=== PATIENT | female | born 1945 | race Caucasian/White ===

== ENCOUNTER → 2019-12-07 09:11 | Outpatient (CLI) | payer OTHER, SELFPAY ==
--- NOTE | 2019-12-07 09:31 | DEXA_ITS ---
Bone Density Report Name: Ashley Stokes Age: 74 Sex: Female Ethnicity: White Date of : 1945 Indication: osteopenia; height loss; hysterectomy; Referring Provider: Jeannie, Mercedes Study: Bone densitometry was performed. Exam Date: December 07, 2019 Accession number: [id number] Bone Density: Region BMD T-score Z-score Classification AP Spine (L1-L4) 0.924 -1.1 1.2 Osteopenia Femoral Neck (Left) 0.591 -2.3 -0.3 Osteopenia Total Hip (Left) 0.734 -1.7 0.0 Osteopenia Femoral Neck (Right) 0.552 -2.7 -0.7 Osteoporosis Total Hip (Right) 0.690 -2.1 -0.4 Osteopenia Total Hip Mean 0.712 -1.9 -0.2 Osteopenia World Health Organization criteria for BMD impression classify patients as: Normal (T-score at or above -1.0), Osteopenia (T-score between -1.0 and -2.5), or Osteoporosis (T-score at or below -2.5). 10-year Fracture Risk: FRAX not reported because: Some T-score for Spine Total or Hip Total or Femoral Neck at or below -2.5 Previous Exams: Region Exam Age BMD T-score BMD Change BMD Change Date g/cm2 vs Baseline vs Previous AP Spine(L1-L4) 12/07/2019 74 0.924 -1.1 0.061* 0.138* 08/15/2017 72 0.786 -2.4 -0.077* -0.077* 03/28/2015 69 0.862 -1.7 0.000 0.029* 09/16/2012 67 0.833 -1.9 -0.030* -0.030* 04/06/2008 62 0.863 -1.7 Total Hip(Left) 12/07/2019 74 0.734 -1.7 0.017 -0.004 08/15/2017 72 0.738 -1.7 0.021 -0.009 03/28/2015 69 0.747 -1.6 0.030* 0.012 09/16/2012 67 0.734 -1.7 0.018 0.018 04/06/2008 62 0.717 -1.8 Total Hip(Right) 12/07/2019 74 0.690 -2.1 0.003 -0.012 08/15/2017 72 0.702 -2.0 0.014 0.009 03/28/2015 69 0.693 -2.0 0.006 -0.041* 09/16/2012 67 0.734 -1.7 0.047* 0.047* 04/06/2008 62 0.688 -2.1 *Denotes significance at 95% confidence level, LSC for AP Spine = 0.022 g/cm2, LSC for Total Hip = 0.027 g/cm2 Clinical Information Provided by Patient: Has used the following medications: Evista (i.e. raloxifene), Vitamin D, Calcium Has the following medical conditions: Hysterectomy Patient maximum height was 62 Menopause Age: 43 Drinks caffeinated beverages Onset of menses at age 14 Number of children 3 Impression: The patient has osteoporosis, based on t
--- NOTE | 2019-12-07 10:30 | DEXA_ITS ---
See other dexa report on this same visit. Bone Density Report Name: Ashley Stokes Age: 74 Sex: Female Ethnicity: White Date of : 1945 Indication: osteopenia; height loss; hysterectomy; Referring Provider: Jeannie, Mercedes Study: Bone densitometry was performed. Exam Date: December 07, 2019 Accession number: [id number] Bone Density: Region BMD T-score Z-score Classification AP Spine (L1-L4) 0.924 -1.1 1.2 Osteopenia Femoral Neck (Left) 0.591 -2.3 -0.3 Osteopenia Total Hip (Left) 0.734 -1.7 0.0 Osteopenia Femoral Neck (Right) 0.552 -2.7 -0.7 Osteoporosis Total Hip (Right) 0.690 -2.1 -0.4 Osteopenia Total Hip Mean 0.712 -1.9 -0.2 Osteopenia World Health Organization criteria for BMD impression classify patients as: Normal (T-score at or above -1.0), Osteopenia (T-score between -1.0 and -2.5), or Osteoporosis (T-score at or below -2.5). 10-year Fracture Risk: FRAX not reported because: Some T-score for Spine Total or Hip Total or Femoral Neck at or below -2.5 Previous Exams: Region Exam Age BMD T-score BMD Change BMD Change Date g/cm2 vs Baseline vs Previous AP Spine(L1-L4) 12/07/2019 74 0.924 -1.1 0.061* 0.138* 08/15/2017 72 0.786 -2.4 -0.077* -0.077* 03/28/2015 69 0.862 -1.7 0.000 0.029* 09/16/2012 67 0.833 -1.9 -0.030* -0.030* 04/06/2008 62 0.863 -1.7 Total Hip(Left) 12/07/2019 74 0.734 -1.7 0.017 -0.004 08/15/2017 72 0.738 -1.7 0.021 -0.009 03/28/2015 69 0.747 -1.6 0.030* 0.012 09/16/2012 67 0.734 -1.7 0.018 0.018 04/06/2008 62 0.717 -1.8 Total Hip(Right) 12/07/2019 74 0.690 -2.1 0.003 -0.012 08/15/2017 72 0.702 -2.0 0.014 0.009 03/28/2015 69 0.693 -2.0 0.006 -0.041* 09/16/2012 67 0.734 -1.7 0.047* 0.047* 04/06/2008 62 0.688 -2.1 *Denotes significance at 95% confidence level, LSC for AP Spine = 0.022 g/cm2, LSC for Total Hip = 0.027 g/cm2 Clinical Information Provided by Patient: Has used the following medications: Evista (i.e. raloxifene), Vitamin D, Calcium Has the following medical conditions: Hysterectomy Patient maximum height was 62 Menopause Age: 43 Drinks caffeinated beverages Onset of menses at age 14 Number of children 3 Imp
== END ==
PROVIDERS: Visit Provider Family Medicine
DX: Z78.0 Asymptomatic menopausal state (principal); M85.88 Other specified disorders of bone density and structure, other site; M85.852 Other specified disorders of bone density and structure, left thigh; M85.851 Other specified disorders of bone density and structure, right thigh; M81.0 Age-related osteoporosis without current pathological fracture
CPT/HCPCS: 77080

== ENCOUNTER → 2020-01-15 13:30 | Outpatient (CLI) | payer OTHER, SELFPAY ==
--- NOTE | ~2020-01-15 | MM_ITS ---
EXAMINATION: MM screening mervat BI w robyn HISTORY: Screening mammogram TECHNIQUE: Craniocaudal and mediolateral oblique 3-D tomosynthesis images were obtained and synthetic 2-D images were generated. CAD analysis was submitted and interpreted. COMPARISON: 05/06/2014, 04/20/2013 bilateral digital screening mammogram examinations BREAST PARENCHYMAL COMPOSITION: The breasts are heterogeneously dense, which may obscure small masses . FINDINGS: There left breast is considerably smaller than the right consistent with partial mastectomy in the 1990s reportedly. There is no evidence of suspicious mass, calcification, or architectural di stortion to suggest malignancy in either breast. There has been no suspicious interval change. IMPRESSION: 1. No mammographic evidence of malignancy. 2. Recommend routine screening mammography in one year. BI-RADS Category 2: Benign finding(s). Reviewed, dictated and finalized at location A.
== END ==
PROVIDERS: Visit Provider Family Medicine
DX: Z12.31 Encounter for screening mammogram for malignant neoplasm of breast (principal)
CPT/HCPCS: 77063; 77067

== ENCOUNTER 2021-03-19 00:09 | Emergency (ER) | payer OTHER, SELFPAY ==
--- NOTE | ~2021-03-19 | CT_ITS ---
EXAMINATION: CT abdomen pelvis w con INDICATION: Abdominal pain TECHNIQUE: Computed tomographic images of the abdomen and pelvis were obtained after the administrati on of 100 cc of Omnipaque 350 intravenous contrast. The dose-length product (DLP) was 250.44 mGy-cm. Automated exposure control and iterative reconstruction technique were employed. COMPARISON: None available FINDINGS: Minimal dependent atelectasis is present in the lung bases. The heart size is normal. The l iver, spleen, pancreas, and gallbladder are normal. There is mild thickening of the adrenal glands wh ich maintain their adreniform shape. Cysts of the kidneys measure up to 9 mm on the right. There is c alcified atherosclerosis of the aorta and many of the other arteries. No pathologically enlarged abdo jaclyn or pelvic lymph nodes are identified. There is no free intraperitoneal gas or evidence of bowel obstruction. There is a ventral hernia containing fat and a short segment of nonobstructed transvers e colon. There is severe lumbar spondylosis at L5-S1. There is a 4.4 x 3.0 cm cystic lesion of the le ft adnexa. An endoluminal stent is noted in the left common and external iliac arteries. There are matta rgical clips in the left groin. IMPRESSION: 1. Large lower abdominal ventral hernia containing fat and a short segment of nonobstructed transvers e colon. 2. Cystic lesion of the left adnexa. Follow-up pelvic ultrasound is recommended. Reviewed, dictated and finalized at location A. IMPRESSION: 1. Large lower abdominal ventral hernia containing fat and a short segment of n onobstructed transverse colon. 2. Cystic lesion of the left adnexa. Follow-up pelvic ultrasound is recommended .
--- NOTE | 2021-03-19 00:10 | PC.NURSE ---
zofran given per EMS
[2021-03-19 00:13] VITALS: BP 144/55; PULSE 57; RESP 20; TEMP 36.5; O2SAT 98
--- NOTE | 2021-03-19 00:22 | ECG_ITS ---
Measurements Intervals [place] Rate: 59 P: 74 CT: 166 QRS: 42 QRSD: 105 T: 57 QT: 461 QTc: 457 Interpretive Statements SINUS BRADYCARDIA VENTRICULAR PREMATURE COMPLEX CANNOT RULE OUT SEPTAL INFARCT, AGE INDETERMINATE ABNORMAL ECG Electronically Signed On 03-19-2021 9:31:14 CDT by Gregg Natarajan D.O.
[2021-03-19] MEDS: PROCHLORPERAZINE EDISYLATE 10 MG/2 ML VIAL IV PUSH (00:39)
[2021-03-19] MEDS: HYDROmorphone HCL INJ (*CRX) 1 MG/ML SYR 0.5 MG IV PUSH (00:40)
[2021-03-19] MEDS: SODIUM CHLORIDE 0.9% IV 1,000 ML 999 ML IV CONT (00:40)
[2021-03-19 00:46] LABS: Basophils Percent Auto 0.2 % (0.2-1.2); Eosinophils Percent Auto 0.2 % (0-4.4); Hematocrit 26.6 % (37.0-47.0); Hemoglobin 7.6 g/dL (12.0-15.0); Immature Granulocyte Absolute 0.05 K/mm3 (0.00-0.031); Immature Granulocyte Percent A 0.5 % (0-0.5); Lymphocytes Absolute Auto 1.91 K/mm3 (0.9-3.2); Lymphocytes Percent Auto 18.9 % (18.3-44.2); Mean Corpuscular HGB Conc 28.6 g/dl (32-36); Mean Corpuscular Hemoglobin 22.2 pg (26-34); Mean Corpuscular Volume 77.6 fl (80-100); Monocytes Absolute Auto 1.1 K/mm3 (0.1-0.6); Monocytes Percent Auto 10.5 % (2.6-8.5); Neutrophils Absolute Auto 7.1 K/mm3 (1.3-6.7); Neutrophils Percent Auto 69.7 % (45.5-73.1); Platelet Count Result 255 k/mm3 (150-375); Red Blood Count 3.43 M/mm3 (4.2-5.4); White Blood Count 10.1 K/mm3 (4.5-10.0)
[2021-03-19 00:57] VITALS: BP 120/49; PULSE 80; RESP 17; O2SAT 95
[2021-03-19 00:57] LABS: Alanine Aminotransferase 15 U/L (4-35); Albumin Level 4.2 g/dL (3.5-5.1); Alkaline Phosphatase 58 U/L (38-126); Anion Gap 8 mmol/L (8-16); Aspartate Amino Transferase 20 U/L (14-36); Bilirubin,Total 0.1 mg/dL (0.2-1.3); Blood Urea Nitrogen 22 mg/dL (7-17); Calcium 9.2 mg/dL (8.4-10.2); Carbon Dioxide 26 mmol/L (22-30); Chloride 107 mmol/L (98-107); Estimated CRCL calculation 68 ml/min; Estimated Glomerular Filt Rate > 60; Glucose 123 mg/dL (65-110); Lactic Acid Reflex 1.5 mmol/L (0.7-2.1); Lipase 67 U/L (23-300); Magnesium 1.8 mg/dL (1.6-2.3); Potassium 3.7 mmol/L (3.4-5.0); Sodium 141 mmol/L (137-145)
[2021-03-19 00:59] LABS: Hypochromasia 1+ (NORMAL); Platelet Estimate Adequate (Adequate)
[2021-03-19 01:05] LABS: INR 0.9; Prothrombin Time 12.1 Seconds (11.1-14.7)
[2021-03-19 01:10] LABS: Partial Thromboplastin Time < 20.0 SECONDS (22.3-36.8)
[2021-03-19 01:13] LABS: Add Urine Microscopic? YES; Appearance Urine Clear (Clear); Bilirubin Urine Negative (Negative); Blood Urine Negative (Negative); Color Urine Yellow (Yellow); Glucose Urine UA Negative (Negative); Ketones Urine Negative (Negative); Leukocyte Esterase Ur Negative LEU/UL (Negative); Mucus Urine Rare /lpf; Nitrate Urine Negative (Negative); Protein Urine 1+ mg/dL (Negative); Specific Grav Ur 1.017 (1.001-1.035); Urobilinogen Urine Negative mg/dL (<2.0); WBC Urine 0-3 /hpf
--- NOTE | 2021-03-19 01:25 | ED.GENADULT ---
HPI - General Adult General Chief complaint: Nausea/Vomiting/Diarrhea Stated complaint: NVD Time Seen by Provider: 03/19/21 00:17 History of Present Illness HPI narrative: Patient is a 75-year-old female presents the emergency department with chief complaint of nausea and vomiting and diarrhea. Patient states that this evening she started not feeling well and had sudden onset of vomiting and diarrhea. The patient states she has had several episodes of diarrhea and 3 episodes of vomiting the patient states that she has discomfort in the epigastric region reports that she has had no fevers and reported that she vomited up the soup that she ate earlier this evening. Related Data Allergies Allergy/AdvReac Type Severity Reaction Status Date / Time alendronate sodium [Fosamax] Allergy Unknown bone pain Verified 05/31/17 21:20 codeine Allergy Unknown Verified 05/31/17 21:20 morphine AdvReac Unknown VOMITING Verified 05/18/16 11:58 Review of Systems Review of Systems: A 10 system review of systems was completed on the patient and is negative except for what is stated in the HPI. Nursing and ancillary documentation was reviewed. Exam Narrative: GENERAL: Well-appearing, well-nourished, and in no acute distress. HEAD: Normocephalic, atraumatic. EYES: PERRLA and EOMI. ENT: Nares clear, no rhinorrhea or epistaxis. Mucous membranes moist. NECK: Supple. CHEST: Clear to auscultation. No respiratory distress. HEART: Regular rate and rhythm. No murmur heard. Normal peripheral pulses. ABDOMEN: Soft, mild tenderness to palpation in the epigastric region, nondistended, normal active bowel sounds. EXTREMITIES: Normal range of motion. No edema. SKIN: Warm, dry, no rash. NEURO: No focal deficits. Alert and oriented x3. PSYCH: Normal mood and affect. Course Course Emergency Course: Per the radiologist report there is no acute abnormality on the CT scan. Patient was found to be anemic today with a hemoglobin of 7.6. Patient has no history of anemia had a negative stool guaiac. It was discussed with the patient admission for observation and serial H&H's and further work-up of the anemia versus outpatient follow-up. The patient initially requested for outpatient follow-up and even after explaining the risk and benefits of staying in the hospital the patient opted for outpatient follow-up with her primary care physician. Patient was instructed if she begins to get lightheaded has chest pain or shortness of breath she should return to the emergency department immediately Vital Signs Vital signs: Vital Signs Temperature 36.5 C 03/19/21 00:13 Pulse Rate 57 L 03/19/21 00:13 Respiratory Rate 20 03/19/21 00:13 Blood Pressure 144/55 H 03/19/21 00:13 Pulse Oximetry 98 03/19/21 00:13 Temperature 36.5 C 03/19/21 00:13 Pulse Rate 91 03/19/21 01:48 Respiratory Rate 22 H 03/19/21 01:48 Blood Pressure 134/58 L 03/19/21 01:48 Pulse Oximetry 96 03/19/21 01:48 Medical Decision Making Vital Signs Vital Signs: Vital Signs Temperature 36.5 C 03/19/21 00:13 Pulse Rate 57 L 03/19/21 00:13 Respiratory Rate 20 03/19/21 00:13 Blood Pressure 144/55 H 03/19/21 00:13 Pulse Oximetry 98 03/19/21 00:13 Temperature 36.5 C 03/19/21 00:13 Pulse Rate 91 03/19/21 01:48 Respiratory Rate 22 H 03/19/21 01:48 Blood Pressure 134/58 L 03/19/21 01:48 Pulse Oximetry 96 03/19/21 01:48 Lab Data Result diagrams: 03/19/21 00:38 03/19/21 00:38 Labs: Lab Results 03/19/21 03/19/21 03/19/21 Range/Units 00:38 00:38 00:38 WBC 10.1 H (4.5-10.0) K/mm3 RBC 3.43 L (4.2-5.4) M/mm3 Hgb 7.6 L (12.0-15.0) g/dL Hct 26.6 L (37.0-47.0) % MCV 77.6 L (80-100) fl MCH 22.2 L (26-34) pg MCHC 28.6 L (32-36) g/dl RDW 18.0 H (11.5-14.5) % Plt Count 255 (150-375) k/mm3 MPV 11.0 H (7.4-10.4) fl Immature Gran % (Auto) 0.5 (0-0.5) % Neut % (Aut
[2021-03-19 01:48] VITALS: BP 134/58; PULSE 91; RESP 22; O2SAT 96
[2021-03-19 03:31] VITALS: BP 149/55; PULSE 72; RESP 14; O2SAT 95
== END 2021-03-19 03:32 | disposition home or self-care (01) ==
PROVIDERS: Emergency Provider Emergency Medicine
DX: K52.9 Noninfective gastroenteritis and colitis, unspecified (principal); D64.9 Anemia, unspecified; R10.13 Epigastric pain
CPT/HCPCS: 36415; 51701; 74177; 80053; 81001; 83605; 83690; 83735; 85025; 85610; 85730; 86850; 86900; 86901; 93005; 96361; 96374; 96375; 99284; J0780; J1170; J7030; Q9967

== ENCOUNTER 2022-08-19 15:33 | Emergency (ER) | payer OTHER, SELFPAY ==
[2022-08-19 15:37] VITALS: BP 132/84; PULSE 54; RESP 16; TEMP 37; O2SAT 100
[2022-08-19 15:53] LABS: Basophils Absolute Auto 0.1 K/mm3 (0.0-0.1); Basophils Percent Auto 0.5 % (0.2-1.2); Eosinophils Absolute Auto 0.2 K/mm3 (0-0.3); Eosinophils Percent Auto 1.7 % (0-4.4); Hematocrit 37.8 % (37.0-47.0); Immature Granulocyte Absolute 0.04 K/mm3 (0.00-0.031); Immature Granulocyte Percent A 0.4 % (0-0.5); Lymphocytes Absolute Auto 1.35 K/mm3 (0.9-3.2); Lymphocytes Percent Auto 13.2 % (18.3-44.2); Mean Corpuscular HGB Conc 31.7 g/dl (32-36); Mean Corpuscular Hemoglobin 29.1 pg (26-34); Mean Corpuscular Volume 91.7 fl (80-100); Mean Platelet Volume 10.7 fl (7.4-10.4); Monocytes Absolute Auto 0.8 K/mm3 (0.1-0.6); Monocytes Percent Auto 7.4 % (2.6-8.5); Neutrophils Absolute Auto 7.9 K/mm3 (1.3-6.7); Neutrophils Percent Auto 76.8 % (45.5-73.1); Platelet Count Result 268 k/mm3 (150-375); Red Blood Count 4.12 M/mm3 (4.2-5.4); Red Cell Distribution Width 14.2 % (11.5-14.5); White Blood Count 10.2 K/mm3 (4.5-10.0)
[2022-08-19 16:05] LABS: Alanine Aminotransferase 16 U/L (6-35); Albumin Level 4.1 g/dL (3.5-5.1); Alkaline Phosphatase 93 U/L (38-126); Anion Gap 8 mmol/L (8-16); Aspartate Amino Transferase 20 U/L (14-36); Bilirubin,Total 0.4 mg/dL (0.2-1.3); Blood Urea Nitrogen 19 mg/dL (7-17); Calcium 8.6 mg/dL (8.4-10.2); Carbon Dioxide 26 mmol/L (22-30); Chloride 105 mmol/L (98-107); Estimated CRCL calculation 57 ml/min; Estimated Glomerular Filt Rate > 60; Glucose 129 mg/dL (65-110); Lipase 101 U/L (23-300); Potassium 3.3 mmol/L (3.4-5.0); Sodium 139 mmol/L (137-145)
[2022-08-19 16:06] LABS: Lactic Acid Reflex 1.6 mmol/L (0.7-2.0)
[2022-08-19 18:02] VITALS: BP 167/47; PULSE 60; RESP 20; TEMP 36.1; O2SAT 100
[2022-08-19 18:29] LABS: Appearance Urine Cloudy (Clear); Bacteria Urine None Seen /hpf; Bilirubin Urine Negative (Negative); Blood Urine Negative (Negative); Color Urine Yellow (Yellow); Glucose Urine UA Negative (Negative); Ketones Urine 2+ mg/dL (Negative); Leukocyte Esterase Ur 1+ LEU/UL (Negative); Need Manual Microscopic Reviewed; Nitrate Urine Negative (Negative); Non Pathogenic Casts 0-2; Protein Urine Trace mg/dL (Negative); Specific Grav Ur 1.018 (1.001-1.035); Squamous Epithelial Cell Urine None seen /hpf (Few); Urobilinogen Urine 0.2 mg/dL (<2.0); WBC Urine 0-5 /hpf
[2022-08-19 18:30] LABS: Add Urine Microscopic? YES
--- NOTE | 2022-08-19 19:13 | PC.NURSE ---
Pt's son approached desk and notified this RN that he is taking pt home. Pt ambulated out of department with steady gait.
== END 2022-08-19 19:13 | disposition left against medical advice (07) ==
PROVIDERS: Emergency Provider Emergency Medicine
DX: R10.32 Left lower quadrant pain (principal)
CPT/HCPCS: 36415; 80053; 81001; 83605; 83690; 85025; 99199

== ENCOUNTER 2023-04-15 13:18 | Outpatient (CLI) | payer OTHER, SELFPAY ==
[2023-04-15 15:35] LABS: Toxigenic C. Diff NEGATIVE (NEGATIVE)
== END 2023-04-15 13:19 | disposition home or self-care (01) ==
PROVIDERS: PCP Family Medicine; Visit Provider Family Medicine
DX: R19.7 Diarrhea, unspecified (principal)
CPT/HCPCS: 87045; 87427; 87449; 87493

== ENCOUNTER 2025-02-13 08:56 | Emergency (ER) | payer OTHER, SELFPAY ==
--- OUTSIDE RECORDS SUMMARY | 2007-09-24 03:02 | XMS_ITS | Continuity of Care Document ---
Author Organization [facility] Address [address] [place] [address] utive [facility] [address] [place] [address] Phone Care Team Providers Care Rigging Slinger Name Role Phone Hudson Barajas Unavailable Unavailable Procedures Procedure Date Eye Exam, New Patient Advance Directives Directive Yes / No Effective Date File Name No Information Encounters Encounter Description Practice Location Reason(s) For Visit Diagnoses Date Provider Providers Copied on Encounter [facility], [address] [place] [address] [address], [place], [place], [address], [place] tel:[phone] [facility] No Information 0-200 8 Darelvinmanju Treviño. [address] [facility] [address], [place], [address], [place]. tel:[phone] Family History Family Member Type Diagnosis Age At Onset No Information Payers Payer name Insurance type Covered alliance party ID Authoriza tion(s) No Information Social History Type Description Quantity Date Captured Comments Sex Female Smoking Status No Information Chief Complaint And Reason For Visit No Information Reason For Referral Reason For Referral No Information History Of Present Illness Encounter Date Complaint History Of Prese nt Illness No Information Functional Status Date Functional Assessmen t No Information Instructions Date Instruction Additional Infor mation No Information Assessments Type Assessment Date No Information Patient Care Teams Name Effective Dates (start - stop) Status Members No Information
--- OUTSIDE RECORDS SUMMARY | 2007-09-24 03:02 | XMS_ITS | Continuity of Care Document ---
Author Organization [facility] Address [address] [place] [address] utive [facility] [address] [place] [address] Phone Care Team Providers Care Construction Job Cost Estimator Name Role Phone Hudson Barajas Unavailable Unavailable Procedures Procedure Date Eye Exam, New Patient Advance Directives Directive Yes / No Effective Date File Name No Information Encounters Encounter Description Practice Location Reason(s) For Visit Diagnoses Date Provider Providers Copied on Encounter [facility], [address] [place] [address] [address], [place], [place], [address], [place] tel:[phone] [facility] No Information 0-200 8 Darelvinmanju Treviño. [address] [facility] [address], [place], [address], [place]. tel:[phone] Family History Family Member Type Diagnosis Age At Onset No Information Payers Payer name Insurance type Covered constitution party ID Authoriza tion(s) No Information Social [...]
--- OUTSIDE RECORDS SUMMARY | 2012-12-16 08:58 | XMS_ITS | Continuity of Care Document ---
Author Organization [facility] Address [address] [place] [address] Phone Care Team Providers Care Cup Machine Operator Name Role Phone Devika ORTIZ, Pamella Unavailable Unavailabl e Allergies, Adverse Reactions, Alerts Substance Reaction Status Criticality codeine Stomach Pain Active No Information PSEUDOEPHEDRINE HCL Other Active No Infor mation FEXOFENADINE HCL Other Active No Informat ion Medications Medication Instructions Dosage Effective Dates (start - stop) Status Comments Cymbalta 30 mg capsule,delayed release take 1 capsule by oral route 2 times every day - Active Lyrica 50 mg capsule take 1 capsule by oral route 3 times every day 50 MG - Active Fosamax 70 mg tablet take 1 tablet by oral route every week in the morning, at least 30 min before first food, beverage, or medication of day 70 MG - Active Lipitor 40 mg Tab take 1.5 Tablet (40MG) by oral route every day at bedtime - Active Dose increa sed from 1 daily to 1.5 tabs daily EVISTA 60 MG TABLET 1 QD - Active Zantac 150 mg tablet take 1 tablet by oral route 2 times every day as needed for GERD - Active Glucosamine 500 mg tablet - Active SONATA 5 MG CAPSULE 1 QHS - Active lisinopril 20 mg tablet take 1 tablet (20MG) by oral route every day 20 MG - Active ADULT LOW STRENGTH 81MG TABS 1 DAILY - Active CALCIUM CARBONATE W/VITAMIN D 1 BID - Active Advance Directives Directive Yes / No Effective Date File Name No Information Encounters Encounter Description Practice Location Reason(s) For Visit Diagnoses Date Provider Providers Copied on Encounter Nguyen [employer], [address], [place], [place], [address] , tel: [phone] [place] No Information 3 Fortune Pamella. [address] [place], [place], [address]. tel:[phone] Kg [employer], [address], [place], [place], [address] , [place] tel: [phone] [place] No Information 3 Fortune Pamella. [address] [place], [place], [address]. tel:[phone] [employer], [address], [place], [place], [address] , tel: [phone] [place] Leg pain, bilateralAcquired spondylolisthesis 3 Fortune Pamella. [address] [place], [place], [address]. tel:[phone] Referring Provider: Pamella Fortune, [address] [place], [address] . tel:[phone] [facility], [address], [place], [place], [address] , tel: [phone] [place] No Information 3 Devika Can. [address] [place], [place], [address]. tel:[phone] [facility], [address], [place], [place], [address] , [place] tel: [phone] [place] Osteoporosis, unspecified 3 Devika Can. [address] [place], [address]. tel:[phone] [facility], [address], [place], [place], [address] , tel: [phone] [place] Essential hypertensionHYPER LIPIDEMIA NEC/NOSAORTIC ATHEROSCLEROSISEM PHYSEMA NECOsteopeniaPeri pheral neuropathy 3 Devika Marcialh. [address] [place], [place], [address]. tel:[phone] Referring Provider: Pamella Fortune, [address] [place], [address] . tel:[phone] [facility], [address], [place], [place], [address] , tel: [phone] [place] No Information 3 Devika Marcialh. [address] [place], [place], [address]. tel:[phone] [facility], [address], [place], [place], [address] , [place] tel: [phone] [place] No Information 3 Devika Marcialh. [address] [place], [place], [address]. tel:[phone] [facility], [address], [place], [place], [address] , [place] tel: [phone] [place] HYPERLIPIDEMIA NEC/NOSEMPHYSEMA NECAORTIC ATHEROSCLEROSISEs sential hypertensionSpond ylolysis of lumbosacral regionDisorder of bone and cartilage, unspecifiedPerson al history of malignant neoplasm of breast 2 Devika Marcialh. [address] [place], [place], [address]. tel:[phone] Referring Provider: Pamella Fortune, [address] [place], [address] . tel:[phone] [facility], [address], [place], [place], [address] , tel: [phone] [place] Acquired spondylolisthesis 2 Devika Marcialh. [address] [place], [place], [address]. tel:[phone] Referring Provider: Pamella Fortune, [place], [address] . tel:[phone] [facility], [address], [place], [place], [address] , tel: [phone] [place] Spondylolysis of lumbosacral region 2 Fortune Pamella. [address] [place], [place], [address]. tel:[phone] Referring Provider: Pamella Fortune, [address] [place] [address], [address] . tel:[phone] [facility], [address], [place], [place], [address] , tel: [phone] [place] Allergic rhinitis, cause unspecifiedPerson al history of malignant neoplasm of breastDisorder of bone and cartilage, unspecifiedPerson al history of malignant neoplasm of breastPersonal history of malignant neoplasm of breastPersonal history of malignant neoplasm of breastDisorder of bone and cartilage, unspecified 1 Fortuneban Marcialh. [address] [place], [place], [address]. tel:[phone] Referring Provider: Pamella Fortune, [address] [place] [address], [address] . tel:[phone] [facility], [address], [place], [place], [address] , tel: [phone] Con[facility] No Information 1 Conversion Doctor. [address] [place] [address], [address], . [facility], [address], [place], [place], [address] , tel: [phone] [place] BONE & CARTILAGE DIS NOS 1 Conversion Doctor. [facility] [place], [address], [place]. [facility], [address], [place], [place], [address] , tel: [phone] [place] HX OF BREAST MALIGNANCYEMPHYSE MA NECINSOMNIA NOSHYPERLIPIDEMIA NEC/NOSAORTIC ATHEROSCLEROSIS 1 Fortune Pamella. [address] [place], [place], [address]. tel:[phone] [facility], [address], [place], [place], [address] , tel: [phone] [place] ALLERGIC RHINITIS NOS Fe-201 1 Fortune Pamella. [address] [place], [place], [address]. tel:[phone] [facility], [address], [place], [place], [address] , tel: [phone] [place] TOBACCO USE DISORDER Aug- 2-201 0 Fortune Pamella. [address] [place], [place], [address]. tel:[phone] [facility], [address], [place], [place], [address] , tel: [phone] [place] HISTORY OF TOBACCO USE 0 1200 7 Conversion Doctor. [address] [place] [address], [address], . [facility], [address], [place], [place], [address] , tel: [phone] [place] No Information Sep-2 8-200 5 Fortune Pamella. [address] [place], [place], [address]. tel:[phone] [facility], [address], [place], [place], [address] , tel: [phone] [place] GYNECOLOGIC EXAMINATION Sep-1 2-200 2 Fortune Pamella. [address] [place], [place], [address]. tel:[phone] Family History Family Member Type Diagnosis Age At Onset Father Problem (finding) coronary arter iosclerosis (Cause Of ) Mother Problem (finding) Father Problem (finding) diabetes melli tus in first degree relative Father Problem (finding) Mother Problem (finding) malignant neop lasm of liver (Cause Of ) Immunizations Vaccine Date Status Comments Flu (split) (3 yrs or older) administered Note: [facility] 14685-723-23 ; Source: New Immunization Record 13734 - Pneumococcal_PPV23 administered S ource: Source Unspecified Payers Payer name Insurance type Covered libertarian ID Authoriza tion(s) [facility] [id number] Social History Type Description Quantity Date Captured [...]
--- OUTSIDE RECORDS SUMMARY | 2012-12-16 08:58 | XMS_ITS | Continuity of Care Document ---
Author Organization [facility] Address [address] [place] [address] Phone Care Team Providers Care Vice President Name Role Phone Devika ORTIZ, Pamella Unavailable [...] Date Provider Providers Copied on Encounter Nguyen [employer], [address], [place], [place], [address] , tel: [phone] [place] No Information 3 Fortune Pamella. [address] [place], [place], [address]. tel:[phone] [facility] [employer], [address], [place], [place], [address] , [place] tel: [phone] [place] No Information 3 Fortune Pamella. [address] [place], [place], [address]. tel:[phone] [employer], [address], [place], [place], [address] , tel: [phone] [place] Leg pain, bilateralAcquired spondylolisthesis 3 Fortune Pamella. [address] [place], [place], [address]. tel:[phone] Referring Provider: Pamella Fortune, [address] [place], [address] . tel:[phone] [facility], [address], [place], [place], [address] , tel: [phone] [place] No Information 3 Devika Can. [address] [place], [place], [address]. tel:[phone] [facility], [address], [place], [place], [address] , [place] tel: [phone] [place] Osteoporosis, unspecified 3 Devika Can. [address] [place], [place], [address]. tel:[phone] [facility], [address], [place], [place], [address] , tel: [phone] [place] Essential hypertensionHYPER LIPIDEMIA NEC/NOSAORTIC ATHEROSCLEROSISEM PHYSEMA NECOsteopeniaPeri pheral neuropathy 3 Devika Marcialh. [address] [place], [place], [address]. tel:[phone] Referring Provider: Pamella Fortune, [address] [place], [address] . tel:[phone] [facility], [address], [place], [place], [address] , tel: [phone] [place] No Information 3 Devika Marcialh. [address] [place], [place], [address]. tel:[phone] [facility], [address], [place], [place], [address] , [place] tel: [phone] [place] No Information 3 Devika Marcialh. [address] [place], [place], [address]. tel:[phone] [facility], [address], [place], [place], [address] , [place] tel: [phone] [place] HYPERLIPIDEMIA NEC/NOSEMPHYSEMA NECAORTIC ATHEROSCLEROSISEs sential hypertensionSpond ylolysis of lumbosacral regionDisorder of bone and cartilage, unspecifiedPerson al history of malignant neoplasm of breast 2 Devika Marcialh. [address] [place], [place], [address]. tel:[phone] Referring Provider: Pamella Fortune, [address] [place], [address] . tel:[phone] [facility], [address], [place], [place], [address] , tel: [phone] [place] Acquired spondylolisthesis 2 Devika Marcialh. [address] [place], [place], [address]. tel:[phone] Referring Provider: Pamella Fortune, [place], [address] . tel:[phone] [facility], [address], [place], [place], [address] , tel: [phone] [place] Spondylolysis of lumbosacral region 2 Fortune Pamella. [address] [place], [place], [address]. tel:[phone] Referring Provider: Pamella Fortune, [address] [place] [address], [address] . tel:[phone] [facility], [address], [place], [place], [address] , tel: [phone] [place] Allergic rhinitis, cause unspecifiedPerson al history of malignant neoplasm of breastDisorder of bone and cartilage, unspecifiedPerson al history of malignant neoplasm of breastPersonal history of malignant neoplasm of breastPersonal history of malignant neoplasm of breastDisorder of bone and cartilage, unspecified 1 Fortuneban Marcialh. [address] [place], [place], [address]. tel:[phone] Referring Provider: Pamella Fortune, [address] [place] [address], [address] . tel:[phone] [facility], [address], [place], [place], [address] , tel: [phone] Con[facility] No Information 1 Conversion Doctor. [address] [place] [address], [address], . [facility], [address], [place], [place], [address] , tel: [phone] [place] BONE & CARTILAGE DIS NOS 1 Conversion Doctor. [facility] [place], [address], [place]. [facility], [address], [place], [place], [address] , tel: [phone] [place] HX OF BREAST MALIGNANCYEMPHYSE MA NECINSOMNIA NOSHYPERLIPIDEMIA NEC/NOSAORTIC ATHEROSCLEROSIS 1 Fortune Pamella. [address] [place], [place], [address]. tel:[phone] [facility], [address], [place], [place], [address] , tel: [phone] [place] ALLERGIC RHINITIS NOS Fe-201 1 Fortune Pamella. [address] [place], [place], [address]. tel:[phone] [facility], [address], [place], [place], [address] , tel: [phone] [place] TOBACCO USE DISORDER Aug- 2-201 0 Fortune Pamella. [address] [place], [place], [address]. tel:[phone] [facility], [address], [place], [place], [address] , tel: [phone] [place] HISTORY OF TOBACCO USE 0 1200 7 Conversion Doctor. [address] [place] [address], [address], . [facility], [address], [place], [place], [address] , tel: [phone] [place] No Information Sep-2 8-200 5 Fortune Pamella. [address] [place], [place], [address]. tel:[phone] [facility], [address], [place], [place], [address] , tel: [phone] [place] GYNECOLOGIC EXAMINATION Sep-1 2-200 2 Fortune Pamella. [address] [place], [place], [address]. tel:[phone] Family History Family Member Type Diagnosis Age At Onset Father Problem (finding) coronary arter iosclerosis (Cause Of ) Mother Problem (finding) Father Problem (finding) diabetes melli tus in first degree relative Father Problem (finding) Mother Problem (finding) malignant neop lasm of liver (Cause Of ) Immunizations Vaccine Date Status Comments Flu (split) (3 yrs or older) administered Note: [facility] [id number] ; Source: New Immunization Record 65045 - Pneumococcal_PPV23 administered S ource: Source Unspecified Payers Payer name Insurance type Covered green party ID Authoriza tion(s) [facility] [id number] Social History Type Description Quantity Date Captured [...]
[2025-02-13] VITALS (12 sets, daily range): BP systolic 130–166; BP diastolic 56–76; PULSE 59–80; RESP 12–17; TEMP 36.4; O2SAT 95–100
--- OUTSIDE RECORDS SUMMARY | 2025-02-13 08:30 | XMS_ITS | Encounter Summary ---
Author Organization [facility] Healthcare Address [address] [place] [address] Care Team Providers Care Manager Continuous Improvement Name Role Phone Casey Baig MD Unavailable [phone] Ashley Lizama MD Unavailable [phone] Felipa Davis MD Unavailable [phone] Homero Coburn NP Unavailable [phone] Adelso Alexander MD Primary Care Provider [phone] Reason for Visit * Reason Comments Vomiting Off/on for 5 days. L ittle energy. Unable to keep any food down. Not able to sleep. Encounter Details Date Type Department Care Team (Late st Contact Info) Description 02/13/2025 8:30 AM CDT Office Visit [facility] Medical Group [facility] at [place] [id number] [place] [address] Ginette Infante NP [address] [place] [address] [address] [place] [address] Dehydration (Primary Dx); Nausea and vomiting, unspecified vomiting type; Functional diarrhea; Weakness Social History Tobacco Use Types Packs/Day Years Used Date Smoking Tobacco: Former Cigarettes Q uit: 12/10/1967 Smokeless Tobacco: Never Alcohol Use Standard Drinks/Week Comments Not Currently 0 (1 standard drink = 0.6 oz pur e alcohol) Social Connection and Isolation Panel Answer Date Recorded In a typical week, how many times do you talk on the phone with family, friends, or neighbors? More than three times a week 09/07/2022 How often do you get togethe r with friends or relatives? More than three times a week 09/07/2022 How often do you attend chur or taoism services? More than 4 times per year 09/07/2022 Do you belong to any clubs o r organizations such as religion groups, unions, fraternal or athletic groups, or school groups? Yes 09/07/2022 How often do you attend meet ings of the clubs or organizations you belong to? Never 09/07/2022 Are you , , di vorced, , never , or living with a partner? 09/07/2022 AUDIT-C Answer Date Recorded Q1: How often do you have a drink containing alcohol? Never 12/15/2024 Q2: How many drinks containi ng alcohol do you have on a typical day when you are drinking? Patient does not drink Q3: How often do you have si x or more drinks on one occasion? Never 12/15/2024 Overall Financial Resource Strain (CARDIA) Answe r Date Recorded How hard is it for you to pa y for the very basics like food, housing, medical care, and heating? Not very hard 09/07/2022 PHQ-2 Answer Date Recorded PHQ-2 Total Score (If total score is 3 or more points, staff should administer the PHQ-9) 0 12/15/2024 Hunger Vital Sign Answer Date Recorded Within the past 12 months, y ou worried that your food would run out before you got the money to buy more. Never true 09/08/19 23 Within the past 12 months, t he food you bought just didn't last and you didn't have money to get more. Never true 09/07/2022 PRAPARE - Transportation Answer Date Re corded In the past 12 months, has l ack of transportation kept you from medical appointments or from getting medications? No 08/25 In the past 12 months, has l ack of transportation kept you from meetings, work, or from getting things needed for daily living? No 09/07/2022 Personal Safety Answer Date Recorded Have you ever been in or are you currently in a harmful physical or emotional relationship or is someone making you feel afraid or unsafe? 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 Gender Identity Female 10/08/2019 6:23 AM CDT Sexual Orientation Straight 10/08/2019 6: 23 AM CDT documented as of this encounter Last Filed Vital Signs Vital Sign Reading Time Taken Comments Blood Pressure 166/74 02/13/2025 8:26 AM CDT Pulse 67 02/13/2025 8:26 AM CDT Temperature 36.4 C (97.5 F) 02/13/2025 8:26 AM CDT Respiratory Rate 18 02/13/2025 8:26 AM CDT Oxygen Saturation 97% 02/13/2025 8:37 AM CDT Inhaled Oxygen Concentration - - Weight 36.4 kg (80 lb 4.8 oz) 02/13/2025 8:26 AM CDT Height 152.4 cm (5') 02/13/2025 8:26 AM CDT Body Mass Index 15.68 02/13/2025 8:26 AM CDT documented in this encounter Patient Instructions * Patient Instructions* Ginette Infante NP - 02/13/2025 8:30 AM CDT --Sending patient to the ER for workup and treatment of dehydration with active vomiting. Son to drive patient to the ER. 4 mg of ODT Zofran given in office * Attachments The following attachments cannot be sent through Care Everywhere. * Acute Nausea and Vomiting (Coal Digger) ([place]orese) * Dehydration (Coal Digger) ([place]) documented in this encounter Plan of Treatment Not on file documented as of this encounter Visit Diagnoses Diagnosis Dehydration- Primary Nausea and vomiting, unspecified vomiting type Functional diarrhea Weakness Other malaise and fatigue documented in this encounter Administered Medications Inactive Administered Medications - up to 3 most recent administrations Medication Order MAR Action Action Date Dose Rate Site ondansetron ODT (ZOFRAN-ODT) disintegrating tablet 4 mg 4 mg, oral, Once, On 02/13/25 at 0915, For 1 dose, If administering by mouth, place tablet on tongue and allow to dissolve.Indications:Nausea and vomiting, unspecified vomiting type Given 02/13/2025 9:30 AM CDT 4 mg documented in this encounter Orders Medications Ordered That David ht Not Have Been Administered Count Last Ordered Date First Ordered Date ondansetron ODT (ZOFRAN-ODT) disintegrating tablet 4 mg 1 02/13/2025 documented in this encounter Care Teams Manager Continuous Improvement Relationship Specialty Start Date End Date Adelso Alexander MD [address] [facility] [address] [place] [address] PCP - General Family Medicine 09/10/24 Casey Baig MD [address] [facility] [address] [place] [address] Surgeon Vascular Surgery 01/01/22 Ashley Lizama MD [address] [facility] [address] [place] [address] Consulting Physician Gastroenterology 06/03/23 Felipa Davis MD [address] [facility] [address] [place] [address] Referring Physician Celery Cutter 06/03/23 [place] [address] [address] [facility] [address] [place] [address] Nurse Practitioner Pain Management 06/03/23 documented as of this encounter
--- OUTSIDE RECORDS SUMMARY | 2025-02-13 08:30 | XMS_ITS | Encounter Summary ---
Author Organization [facility] Healthcare Address [address] [place] [address] Care Team Providers Care Assistant Plant Control Operator Name Role Phone Casey Baig MD Unavailable [phone] Ashley Lizama MD Unavailable [phone] Felipa Davis MD Unavailable [phone] Homero Coburn NP Unavailable [phone] Adelso Alexander MD Primary Care Provider [phone] Reason for Visit * Reason Comments Vomiting Off/on for 5 days. L ittle energy. Unable to keep any food down. Not able to sleep. Encounter Details Date Type Department Care Team (Late st Contact Info) Description 02/13/2025 8:30 AM CDT Office Visit [facility] Medical Group [facility] at [place] [id number] [place] [address] Ginette Infante NP [address] [place] [address] [address] [place] [address] Dehydration (Primary Dx); Nausea and vomiting, unspecified [...] How often do you attend chur or jew services? 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 * Acute Nausea and Vomiting (Pulp Press Tender) (Chadian) * Dehydration (Pulp Press Tender) (Chadian) documented in this encounter Plan of Treatment Not on file documented as of this encounter Visit Diagnoses Diagnosis Dehydration- Primary Nausea and vomiting, unspecified vomiting type Functional diarrhea Weakness Other malaise and fatigue documented in this encounter Orders Medications Ordered That David ht Not Have Been Administered Count Last Ordered Date First Ordered Date ondansetron ODT (ZOFRAN-ODT) disintegrating tablet 4 mg 1 02/13/2025 documented in this encounter Care Teams Assistant Plant Control Operator Relationship Specialty Start Date End Date Adelso Alexander MD [address] [facility] [address] [facility] [address] [place] [address] PCP - General Family Medicine 09/10/24 Casey Baig MD [address] [facility] [place] [address] [place] [address] Surgeon Vascular Surgery 01/01/22 Ashley Lizama MD [address] [facility] [address] [place] [address] Consulting Physician Gastroenterology 06/03/23 Felipa Davis MD [address] [facility] [address] [place] [address] Referring Physician Chief Of Production 06/03/23 [place] [address] [address] [facility] [address] [place] [address] Nurse Practitioner Pain Management 06/03/23 documented as of this encounter
--- OUTSIDE RECORDS SUMMARY | 2025-02-13 08:58 | XMS_ITS | Clinical Summary ---
Author Organization [facility] Address [facility]ly [facility] [place] [address] Care Team Providers Care Fiberglass Ski Maker Name Role Phone Unavailable Primary Care Provider Unavailabl e Social History Tobacco Use Types Packs/Day Years Used Date Smoking Tobacco: Never Assessed Comments Unknown Sex and Gender Information Value Date Recorded Sex Assigned at Not on file Legal Sex Female 8:00 PM CDT Gender Identity Not on file Sexual Orientation Not on file Plan of Treatment Health Maintenance Due Date Last Done Comments Hepatitis C 1963 DTaP, Tdap and Td Vaccines ( 1 - Tdap) 1965 Pneumococcal Vaccine: 50+ Ye ars (1 of 1 - PCV) 1996 Zoster Vaccines (1 of 2) 1996 Dexa Scan (General) 2011 RSV Immunization or 60+ Years (1 - 1-dose 75+ series) 2021 COVID-19 Vaccine (2023-2 5 season) 2025 Meningococcal B Vaccine Aged Out No l onger eligible based on patient's age to complete this topic Meningococcal Vaccine Aged Out No sariah barbara eligible based on patient's age to complete this topic RSV Immunizations Under 20 Months Aged Out No longer eligible based on patient's age to complete this topic
--- OUTSIDE RECORDS SUMMARY | 2025-02-13 08:58 | XMS_ITS | Encounter Summary ---
Author Organization [facility] Healthcare Address [address] [place] [address] Care Team Providers Care Flag Maker Name Role Phone Casey Baig MD Unavailable [phone] Ashley Lizama MD Unavailable [phone] Felipa Davis MD Unavailable [phone] Homero Coburn NP Unavailable [phone] Adelso Alexander MD Primary Care Provider [phone] Encounter Details Date Type Department Care Team (Late st Contact Info) Description 02/12/2025 Telephone [facility] Medical Group Family Medicine at [address] [place] [address] Adelso Alexander MD [address] [place] [address] [address] [place] [address] Social History Tobacco Use Types Packs/Day Years [...] 09/07/2022 How often do you attend chur ch or episcopal services? 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 Scanned into media documented in this encounter Plan of Treatment Not on file documented as of this encounter Visit Diagnoses Not on filedocumented in this encounter Care Teams Flag Maker Relationship Specialty Start Date End Date Adelso Alexander MD [address] [facility] [address] [place] [address] PCP - General Family Medicine 09/10/24 Casey Baig MD [address] [facility] [address] [place] [address] [place] [address] Surgeon Vascular Surgery 01/01/22 Ashley Lizama MD [address] [place] [address] [place] [address] Consulting Physician Gastroenterology 06/03/23 Felipa Davis MD [address] [place] [address] Referring Physician [place] 06/03/23 [place] [address] [address] [place] [address] Nurse Practitioner Pain Management 06/03/23 documented as of this encounter
--- OUTSIDE RECORDS SUMMARY | 2025-02-13 08:58 | XMS_ITS | Clinical Summary ---
Author Organization [address] Address [address] [place] [id number] Care Team Providers Care Retail Interior Designer Name Role Phone Casey Baig MD Unavailable [phone] Ashley Lizama MD Unavailable [phone] Felipa Davis MD Unavailable [phone] Homero Coburn NP Unavailable [phone] Adelso Alexander MD Primary Care Provider Allergies Active Allergy Reactions Criticality Noted Date Comments Codeine Sulfate Nausea & Vomiting Low 08/27/2018 INJECTABLE Morphine Sulfate Nausea & Vomiting Low 08/27/2018 INJECTABLE Medications aspirin 81 mg enteric coated tablet Take 1 tablet (81 mg total) by mouth daily Active naloxone (NARCAN) 4 mg/actuation spray,non-aerosol Administer 1 spray into affected nostril(s) as needed for opioid reversal or respiratory depression Call 911. Administer a single spray in one nostril. Repeat every 3 minutes as needed if no or minimal response. 1 each 2 022 Active ferrous sulfate (Iron, ferrous sulfate,) 325 mg (65 mg of elemental iron) tabletIndications :Iron deficiency anemia secondary to inadequate dietary iron intake Take 1 tablet (325 mg total) by mouth daily with breakfast 30 tablet 025 Active ibandronate (BONIVA) 150 mg tabletIndications :Age-related osteoporosis without current pathological fracture Take 1 tablet (150 mg total) by mouth every 30 (thirty) days Take in AM with glass of water prior to food, don't lie down for 30 minutes. 3 tablet 3 025 2025 Active lisinopriL (PRINIVIL,ZESTRIL ) 40 mg tabletIndications :Essential hypertension, benign Take 1 tablet (40 mg total) by mouth daily 90 tablet 3 025 2025 Active atorvastatin (LIPITOR) 40 mg tabletIndications :Mixed hyperlipidemia Take 1 tablet (40 mg total) by mouth daily 100 tablet 1 Active donepeziL (ARICEPT) 5 mg tabletIndications :Mild cognitive impairment Take 1 tablet (5 mg total) by mouth nightly 30 tablet 2 025 2024 Active HYDROcodone-aceta minophen (NORCO) 7.5-325 mg per tabletIndications :Pain Take 1 tablet by mouth every 6 (six) hours as needed for pain 120 tablet 025 2024 Active HYDROcodone-aceta minophen (NORCO) 7.5-325 mg per tabletIndications :Pain Take 1 tablet by mouth every 6 (six) hours as needed for pain 120 tablet 025 2024 Active clopidogreL (PLAVIX) 75 mg tablet Take 1 tablet by mouth once daily 90 tablet Active traZODone (DESYREL) 50 mg tablet Take 1 tablet by mouth nightly 30 tablet Active clopidogreL (PLAVIX) 75 mg tablet Take 1 tablet by mouth once daily 90 tablet 025 2024 Discontinued HYDROcodone-aceta minophen (NORCO) 7.5-325 mg per tabletIndications :Pain Take 1 tablet by mouth every 6 (six) hours as needed for pain 120 tablet 025 2024 Discontinued(T herapy completed) HYDROcodone-aceta minophen (NORCO) 7.5-325 mg per tabletIndications :Pain Take 1 tablet by mouth every 6 (six) hours as needed for pain 120 tablet 025 2024 Discontinued(T herapy completed) HYDROcodone-aceta minophen (NORCO) 7.5-325 mg per tabletIndications :Pain Take 1 tablet by mouth every 6 (six) hours as needed for pain 120 tablet 025 2024 Discontinued(T herapy completed) traZODone (DESYREL) 50 mg tabletIndications :insomnia associated with depression Take 1 tablet (50 mg total) by mouth nightly 30 tablet 025 2024 Discontinued Hospital, Clinic, or Other Facility Administered Medication Ordered Dose Route Frequency Start Date End Date Status ondansetron ODT (ZOFRAN-ODT) disintegrating tablet 4 mgIndications:Nausea and vomiting, unspecified vomiting type 4 mg oral Once 02/13/2025 02/14/2025 Active Active Problems Problem Noted Date Diagnosed Date Neck pain 01/18/2025 Paresthesia of hand, bilateral 09/24/2024 Iron deficiency anemia 03/24/2024 Assessment & Plan (06/08/2024 4:29 PM CLOTH STRETCHER): HPI: Condition is not at/near goal. Last hemoglobin 12.4 on 05/22/24. A&P: Discussed/ordered labs. Recommend she take iron supplement. Take with citric acid (such as a small glass of orange juice) to improve absorption and avoid any dairy product for the 1 hr before and after taking. Iron pills can be constipating, so you may want to take a stool softener such as docusate or colace with this. Work on increasing iron in diet - poultry, seafood, beans, dark leafy greens, etc. And eating iron rich foods (or iron pills) with other foods that contain vitamin C can be helpful to enhance iron absorption - broccoli, peppers, strawberries, oranges, etc. Please let us know if any dark or bright red stools. Assessment & Plan (03/24/2024 4:53 PM CDT): HPI: Condition is not at/near goal. Lab Results Component Value Date WBC 9.3 01/30/2024 HGB 8.4 (L) 01/30/2024 HCT 31.9 (L) 01/30/2024 MCV 92.2 01/30/2024 LABPLAT 438 (H) 01/30/2024 A&P: Discussed/ordered labs. Iron level is mildly low, I would recommend starting an iron supplement. 1 tablet (325mg ferrous sulfate) every other day. Take with citric acid (such as a small glass of orange juice) to improve absorption and avoid any dairy product for the 1 hr before and after taking. Every other day improves iron levels more than taking every day. Iron pills can be constipating, so you may want to take a stool softener such as docusate or colace with this. Work on increasing iron in diet - poultry, seafood, beans, dark leafy greens, etc. And eating iron rich foods (or iron pills) with other foods that contain vitamin C can be helpful to enhance iron absorption - broccoli, peppers, strawberries, oranges, etc. Please let us know if any dark or bright red stools. Complaints of memory disturbance 03/24/2024 Assessment & Plan (06/08/2024 4:30 PM CLOTH STRETCHER): HPI: Condition is not at/near goal. Son present with patient today and states that he is concerned about her cognitive decline. Feels like it has been steady over the years but has noticed it more recently. Has bought Prevagen but she is inconsistent with using. A&P: Discussed/ordered labs. Recommend consistency with Prevagen and we will follow up at next appointment - may consider referral to Neurology for further assessment/evaluation. Assessment & Plan (03/24/2024 4:56 PM CDT): HPI: Condition is not at/near goal. Son present with patient today and states that he is concerned about her cognitive decline. Feels like it has been steady over the years but has noticed it more recently. Has bought Prevagen but is inconsistent with using. A&P: Discussed/ordered labs. Recommend consistency with Prevagen and we will follow up at next appointment - may consider referral to Neurology for further assessment/evaluation. Polymyalgia rheumatica 04/05/2023 Assessment & Plan (03/24/2024 4:51 PM CDT): HPI: Condition is improving, but not at goal. Patient complains of continued chronic uncontrolled neck and shoulder pain and states that the Machias from pain management is helping a little bit. She does use voltaren gel, lidocaine patches, and ice without much relief. Rheumatology is tapering Prednisone from 5mg twice daily to once daily with plans to d/c and consider Methotrexate. A&P: Continue on Prednisone 5mg daily and Machias 7.5-325mg tablet daily from pain management. Continue to see Dr. Coburn, Pain Management and Dr. Quintanilla, Luncheonette Manager. Assessment & Plan (12/09/2023 5:34 PM CDT): HPI: Condition is not at/near goal. Patient complains of intolerable neck and shoulder pain and states that the Machias from pain management is not cutting it anymore - she is asking for an increase in dose. She does use voltaren gel, lidocaine patches, and ice without much relief. She did previously get Prednisone 10mg twice daily from previous PCP which she states is the only thing that has really helped her pain usp. I did temporarily take over prescribing this but have explained to patient on multiple occasions that after follow up with rheumatology I will no longer be giving extermination inspector steroids d/t increased risk. Rheumatology will need to prescribe in the future. A&P: Continue on Machias 7.5-325mg tablet daily from pain management. Continue to see Dr. Coburn, Pain Management and Luncheonette Manager - does have both appointments scheduled for next week. Assessment & Plan (06/03/2023 1:21 PM CLOTH STRETCHER): HPI: Condition is stable. A&P: Discussed/ordered labs, encouraged healthy lifestyle with at least 150 minutes of exercise per week. Continue on Machias 7.5-325mg tablet daily from pain management. Apt with Dr. Coburn, Pain Management on 06/04/2023. Acute pain of both shoulders 04/04/2023 Bilateral hip pain 04/04/2023 Abnormal EKG 12/07/2022 Assessment & Plan (12/21/2022 1:48 PM CDT): Work up underway with cardiology Will need his clearance given her history Update me with any changes Palpitations 12/07/2022 Bilateral carpal tunnel syndrome 10/02/2022 Moderate malnutrition 08/25/2022 Assessment & Plan (06/08/2024 4:28 PM CLOTH STRETCHER): HPI: Condition is not at/near goal. A&P: Discussed/ordered labs. Recommend Ensure 2-3 times daily in addition to meals. Cervical spondylosis without myelopathy 01/03/20 Assessment & Plan (04/18/2022 10:15 AM CLOTH STRETCHER): Chronic, persistent Continue to follow with pain management Myalgia 01/02/2022 Ventral hernia without obstruction or gangrene 1 06/05/2020 Assessment & Plan (04/18/2022 10:23 AM CLOTH STRETCHER): Chronic Consider referral to general surgery Assessment & Plan (04/05/2021 5:48 PM CLOTH STRETCHER): Will consider surgical evaluation pending her GI workup Primary osteoarthritis of left knee 10/08/2019 Assessment & Plan (04/18/2022 10:22 AM CLOTH STRETCHER): Chronic, on supportive care Update me if her symptoms change or worsen Atherosclerosis of [place] of left lower extremity with intermittent claudication 10/08/2019 Assessment & Plan (10/09/2024 12:17 PM CDT): Impression: Patient is status post left external iliac to profunda bypass graft in 2014 and left external iliac stent placement in 2013. She denies any symptoms of claudication, ischemic rest pain or ulcerations to the lower extremity. Lower extremity arterial duplex reveals a patent bypass graft and stent with triphasic waveforms. Plan: Continue ongoing risk factor modifications to include dual antiplatelet therapy. -Patient to follow-up in 1 year for re-evaluation with repeat lower extremity arterial duplex. Assessment & Plan (06/08/2024 1:03 PM CLOTH STRETCHER): HPI: Condition is stable. S/P left external artery bypass graft 2014 and stent placement 2013. A&P: Discussed/ordered labs. Continue dual antiplatelet therapy of Aspirin and Plavix. Continue to see Emilee Pichardo NP yearly for re-evaluation with repeat lower extremity arterial duplex. Assessment & Plan (12/09/2023 1:52 PM CDT): HPI: Condition is stable. S/P left external artery to profunda artery bypass graft in 2014 and stent placement in 2013. A&P: Discussed/ordered labs. Continue dual antiplatelet therapy of Aspirin and Plavix. Continue to see Emilee Pichardo NP yearly for re-evaluation with repeat lower extremity arterial duplex. Assessment & Plan (10/17/2023 1:27 PM CDT): HPI: Condition is stable. status post left external artery to profunda artery bypass graft in 2014 and stent placement in 2013. Patient last saw Emilee Pichardo NP on 10/09/2023. A&P: Discussed/ordered labs. Continue dual antiplatelet therapy of Aspirin and Plavix. Continue to see Emilee Pichardo NP yearly for re-evaluation with repeat lower extremity arterial duplex. Assessment & Plan (10/09/2023 12:41 PM CDT): Impression: Patient is status post left external artery to profunda artery bypass graft in 2014 and stent placement in 2013. She denies any symptoms of claudication, ischemic rest pain or ulcerations to her lower extremity. Patient has palpable distal pulses bilaterally. Lower extremity arterial duplex reveals a patent bypass graft. Plan: Continue ongoing risk factor modifications. -continue dual antiplatelet therapy of aspirin and Plavix. -patient to follow-up in 1 year for re-evaluation with repeat lower extremity arterial duplex. Encouraged patient make a sooner appointment if she develops any symptoms of claudication or nonhealing ulcerations. Assessment & Plan (03/15/2023 11:39 AM CDT): Status post left external iliac artery stent and left external to femoral and superficial femoral artery bypass 08/17/2014. She denies any concerns or issues with claudication or rest pain. Remains compliant with medications. Plan: Follow-up in 6 months with lower extremity arterial duplex. Assessment & Plan (04/18/2022 10:15 AM CLOTH STRETCHER): Chronic,persistent Continue to follow with vascular Continue aspirin, plavix, cholesterol control/BP control Update me with any changes Assessment & Plan (07/05/2021 1:36 PM CLOTH STRETCHER): Status post left iliac stenting with external iliac to profunda femoral and superficial femoral artery bypass in 2014. Patient continues to do well bypass graft and stents are patent with no residual symptoms. Continue current risk factor modification follow-up duplex surveillance in 6 months. Assessment & Plan (01/04/2021 3:03 PM CDT): She is following with vascular Continue to follow with vascular surgery Continue lipitor, plavix/aspirin, and lisinopril Update me with any changes Call for questions or concerns Assessment & Plan (06/21/2020 5:21 PM CLOTH STRETCHER): Continues to do very well; stent and bypass are patent. GREG and waveforms normal. Cont current management and f/u 6 mos for duplex. Assessment & Plan (10/23/2019 9:54 AM CDT): Reviewed the reasons she is on the medications including plaque stabilization Encouraged to touch base with her vascular provider, but I do not think these are medications to stop Continue medications as prescribed Call for questions or concerns Assessment & Plan (10/08/2019 3:54 PM CDT): Impression: Patient continues do well status post left iliac to produna femoral and superficial femoral artery bypass. She denies any worsening claudication to her left lower extremity, ischemic ulcerations or ischemic rest pain. Lower extremity arterial duplex surveillance remains stable with no progressive stenosis. Plan: No surgical intervention currently needed. Recommend ongoing risk factor modifications. Patient follow-up in 6 months for re-evaluation and repeat lower extremity arterial duplex surveillance. Trochanteric bursitis of both hips 12/09/2018 Assessment & Plan (04/18/2022 10:22 AM CLOTH STRETCHER): Chronic Continue supportive care Assessment & Plan (01/04/2021 3:18 PM CDT): Improved after injections Assessment & Plan (02/04/2019 10:20 AM CDT): Continue to follow with ortho Update me with any changes Call for questions or concerns Assessment & Plan (12/09/2018 10:02 AM CDT): Will refer to ortho for further care Medicare annual wellness visit, subsequent 12/09 Overview (04/18/2022): Work on healthy changes-healthy diet and exercise Look into POA or living will Health Maintenance: Last mammogram: 05/16- WNL Last DEXA: 05/16- osteoporosis Last colonoscopy: 07/24/2017-repeat 5 years Last pneumonia: reviewed Last Shingrix: reviewed Last Flu: yearly Last COVID: encouraged Assessment & Plan (12/15/2024 11:51 AM CDT): Patient here for annual Medicare wellness visit and for review of complete medical problem list. All the elements of the plan were completed as outlined by CMS. A copy of the prevention plan was given to the patient. I reviewed Medicare Wellness Questionnaire (other physicians involved in care, depression screen, advanced directives), cognitive/memory, and functional assessment. Forms scanned in progress notes. I reviewed and updated the complete problem list, medication list, family history, and immunization records with the patient. I provided preventive counseling and early detection interventions to the patient through health maintenance update and summary of today's office visit. Personalized Prevention Plan Services (PPPS): Opioid Use: No Immunization: [id number]: Not Applicable. [id number]: Not Applicable. PCV20: UTD - Done on 05/2023 Influenza: Not Applicable. HepatitisB: Not Applicable. Tetanus: Highly Recommended Shingles: Highly Recommended RSV: Highly Recommended Cancer Screening: Mammogram: Not Applicable. PAP Smear: Not Applicable. Prostate Cancer Screening: Not Applicable. Colorectal Cancer Screening: Not Applicable. Lung Cancer Screening: Not Applicable. Others: Diet: Lifestyle education regarding diet discussed. Exercise: Encouraged regular daily exercise. Medication Use: Aspirin use discussion. DEXA Scan: UTD - Done on 02/2026 Glaucoma Screening: Recommended Annually. Audio Screen ordered? No Diabetes: Not Applicable. Annual Labs: Ordered For Today. Abdominal Aortic Aneurysm Screening: Not Applicable. HIV Screening: Not Applicable. Smoking cessation Counselling: Not Applicable. Subsequent Annual Wellness Visit: Annually Assessment & Plan (04/18/2022 10:14 AM CLOTH STRETCHER): Work on healthy changes-healthy diet and exercise Look into POA or living will Health Maintenance: Last mammogram: 05/16- WNL Last DEXA: 05/16- osteoporosis Last colonoscopy: 07/24/2017-repeat 5 years Last pneumonia: reviewed Last Shingrix: reviewed Last Flu: yearly Last COVID: encouraged Assessment & Plan (01/04/2021 3:01 PM CDT): Work on healthy changes-healthy diet and exercise Look into POA or living will Wear sun screen, seat belts Health Maintenance: Last mammogram: ordered Last DEXA: ordered Last colonoscopy: 07/24/2017-repeat 5 years Last pneumonia/Prevnar: up to date Last Shingrix: reviewed Last Flu: yearly Last COVID: up to date Assessment & Plan (11/20/2019 9:56 AM CDT): Work on healthy low carb diet Healthy activity for 30 minutes daily Wear sun screen, seat belts No texting/drinking and driving Health Maintenance: Last PAP: NA Last mammogram: ordered Last DEXA: scheduled Last colonoscopy: 07/24/2017-repeat 5 years Last Tdap: today Last pneumonia/Prevnar: up to date Last Shingrix: up to date Last Flu: yearly Assessment & Plan (12/09/2018 10:02 AM CDT): Work on healthy low carb diet Healthy activity for 30 minutes daily Wear sun screen, seat belts No texting/drinking and driving Macular degeneration 12/09/2018 Assessment & Plan (04/18/2022 10:20 AM CLOTH STRETCHER): Chronic Following with opthalmology Assessment & Plan (01/04/2021 3:15 PM CDT): Continue to follow with opthalmology Assessment & Plan (11/20/2019 10:04 AM CDT): Continue to follow with opthalmology Assessment & Plan (12/09/2018 5:31 PM CDT): Continue to follow with her specialist Hearing loss 12/09/2018 Assessment & Plan (04/18/2022 10:17 AM CLOTH STRETCHER): Chronic, stable Wearing hearing aids Assessment & Plan (01/04/2021 3:07 PM CDT): Continue to monitor Assessment & Plan (11/20/2019 10:04 AM CDT): Continue to follow with audiology Assessment & Plan (12/09/2018 5:32 PM CDT): Encouraged to use hearing aids Age-related cataract of left eye 09/10/2017 Assessment & Plan (12/21/2022 1:46 PM CDT): Chronic Scheduled, but cardiac work up under way Will have them to reach out to cardiology Call for questions Assessment & Plan (08/31/2022 9:09 AM CDT): Will need clearance through her surgeon before I can clear her Assessment & Plan (04/18/2022 10:14 AM CLOTH STRETCHER): Stable Continue to follow with opthalmology Assessment & Plan (01/04/2021 3:02 PM CDT): Continue to follow with opthalmology Osteoarthritis of lumbar spine 09/28/2016 Assessment & Plan (04/18/2022 10:20 AM CLOTH STRETCHER): Chronic Continue to follow with pain management Assessment & Plan (01/04/2021 3:16 PM CDT): Continue supportive care Continue norco as needed Update me if her symptoms change or worsen Call for questions or concerns Chronic pain 07/24/2016 Assessment & Plan (04/18/2022 10:16 AM CLOTH STRETCHER): Chronic, persistent Continue to follow with pain management Reviewed medication safety Update me with any changes Assessment & Plan (11/09/2021 6:31 PM CDT): We are in a very difficult situation. Given her Plavix and vascular disease, we were unable to use NSAIDs. She did not feel well on amitriptyline Will continue MS Contin and hydrocodone for now I have encouraged her to reach out to pain management to set up an appointment Call for questions or concerns Assessment & Plan (10/31/2021 5:14 PM CDT): I spoke to her pharmacist and reviewed her current regimen. At this time, she is needing 6-8 hydrocodone to control her pain When calculating out her morphine equivalent, she would be at 60 mg To better improve her pain management/control, we will start MS Contin 15 mg twice a day She may use 1 hydrocodone for breakthrough pain as needed I reviewed with her the risk of nausea vomiting, fatigue, constipation She is going to update me in 7 days with how she is doing The pharmacist and I discussed that we may need to adjust her regimen further to optimize her pain control Because her pain is difficult to control I still want her to set up a follow-up visit with pain management Will recheck her x-ray as well Continue supportive measures If she has any issues with medication, she is to let me know Call for questions Assessment & Plan (04/05/2021 5:47 PM CLOTH STRETCHER): Continue hydrocodone at her current dose If we still need the higher dosing, her next refill, we do need to back down on the sonata Update me with any concerns Call for questions Assessment & Plan (03/14/2021 5:38 PM CDT): Currently on a narcotic contract. For now, I will have her increase her hydrocodone If we need to move to something stronger we will need to review how to adjust that Update me with any changes Call for questions Assessment & Plan (01/04/2021 3:06 PM CDT): On elavil, norco MRI ordered by Maya Avila- will reach out for other options Continue supportive care Reviewed safety with narcotics Call for questions or concerns Assessment & Plan (11/20/2019 9:57 AM CDT): Will increase elavil to 50 mg nightly Continue norco as prescribed Update me in 4 weeks Call for questions or concerns Assessment & Plan (06/16/2019 11:10 AM CLOTH STRETCHER): Stable Continue current regimen Assessment & Plan (12/09/2018 5:28 PM CDT): Continue current regimen for pain control Continue supportive modalities History of breast cancer 07/24/2016 Assessment & Plan (04/18/2022 10:18 AM CLOTH STRETCHER): Mammogram ordered Assessment & Plan (01/04/2021 3:07 PM CDT): Mammogram ordered Assessment & Plan (03/31/2020 1:13 PM CLOTH STRETCHER): Off raloxifene Assessment & Plan (11/20/2019 10:04 AM CDT): Mammogram ordered Assessment & Plan (10/23/2019 9:54 AM CDT): Has been on evista Will refer to oncology to look at other options Update me after the visit Call for questions or concerns Assessment & Plan (12/09/2018 10:11 AM CDT): Will write letter for her to get bras Update me with any concerns Call for questions or concerns Hypertension, essential 07/24/2016 Assessment & Plan (10/09/2024 12:17 PM CDT): Impression: Chronic stable. Plan: Continue lisinopril Assessment & Plan (06/08/2024 1:04 PM CLOTH STRETCHER): HPI: Condition is stable. A&P: Discussed/ordered labs. Continue on Lisinopril 40 mg daily. Continue to follow up with Cardiology. Assessment & Plan (03/24/2024 4:48 PM CDT): HPI: Condition is stable. A&P: Discussed/ordered labs. Continue on Lisinopril 40 mg daily. Continue to follow up with Cardiology. Assessment & Plan (12/09/2023 1:55 PM CDT): HPI: Condition is stable. A&P: Discussed/ordered labs. Continue on Lisinopril 20 mg daily. Assessment & Plan (10/09/2023 12:41 PM CDT): Impression: Chronic and stable. Plan: Continue lisinopril Assessment & Plan (06/03/2023 1:13 PM CLOTH STRETCHER): HPI: Condition is stable. A&P: Discussed/ordered labs, encouraged healthy lifestyle with at least 150 minutes of exercise per week. Continue on lisinopril 20 mg tablet daily. Assessment & Plan (12/21/2022 1:47 PM CDT): Chronic, at goal/stable Continue lisinopril Continue to follow with cardiology Assessment & Plan (07/29/2022 4:30 PM CLOTH STRETCHER): Hypertension chronic and at goal. Continue medical therapy. Assessment & Plan (04/18/2022 10:19 AM CLOTH STRETCHER): Chronic, stable/at goal Continue current regimen Assessment & Plan (03/05/2022 10:40 AM CDT): Chronic, stable Continue current regimen Continue healthy changes Assessment & Plan (07/05/2021 1:36 PM CLOTH STRETCHER): Hypertension chronic and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 Diagnosis Comments CT ABDOMEN PELVIS W CONTRAST Schedule Routine, Read Routine (OP Routine) 12/29/2024 3:15 PM CDT Weight loss VITAMIN D 25 HYDROXY Routine 12/15/2024 2:10 PM CDT Mild cognitive impairment VITAMIN B12 Routine 12/15/2024 2:10 PM CDT Mild cognitive impairment CRP (ACUTE PHASE) Routine 12/15/2024 2:1 0 PM CDT Mild cognitive impairment ERYTHROCYTE SEDIMENTATION RATE Routine 12/15/2024 2:10 PM CDT Mild cognitive impairment IRON PROFILE W/ IBC Routine 12/15/2024 2 :10 PM CDT Mild cognitive impairment TSH Routine 12/15/2024 2:10 PM CDT Mild cognitive impairment COLONOSCOPY Routine 09/23/2024 4:48 PM CDT SCREENING MAMMOGRAM BILATERAL W YAMIL Schedule Routine, Read Routine (OP Routine) 03/02/2024 3:25 PM CDT Encounter for screening mammogram for malignant neoplasm of breast DEXA AXIAL SKELETON BONE DENSITY 1 OR MORE SITES Schedule Routine, Read Routine (OP Routine) 03/02/2024 3:14 PM CDT Postmenopausal HEPATITIS C ANTIBODY Routine 06/12/2019 8:38 AM CLOTH STRETCHER Need for hepatitis C screening test from Last 3 Months or Most Recently Relevant to Health Maintenance Results * CT ABDOMEN PELVIS W CONTRAST (12/29/2024 3:15 PM CDT) Anatomical Region Laterality Modality Body N/A Computed Tomogra phy 01/13/2025 3:18 PM CDT Narrative 01/13/2025 3:31 PM CDT EXAM DESCRIPTION: CT ABDOMEN PELVIS W CONTRAST REASON FOR STUDY: Weight loss, unintended Weight loss for almost one year, no abd pain or vomiting Surg Hx breast cancer, appy, hyst, hernia repair, vasc stent TECHNIQUE: CT scan of the abdomen and pelvis performed with intravenous and without oral contrast using helical scanning technique with dynamic intravenous contrast injection. Reconstructed coronal and sagittal MPR images reviewed. All images stored on PACS. Automated exposure control was used as a dose optimization technique for this examination. CONTRAST TYPE/DOSE: 75mL of IOVERSOL 350 MG IODINE/ML INTRAVENOUS SYRINGE injected COMPARISON: 08/20/2022 , 04/23/2022 FINDINGS: LOWER CHEST: Mild scattered subsegmental atelectasis. No pleural effusion. Heart size is at the upper limits of normal. Imaged portions of the esophagus are within normal limits. LIVER: Normal size. No identified cystic or solid masses. The hepatic and portal veins are patent. GALLBLADDER: Normal. BILE DUCTS: No intrahepatic or extrahepatic ductal dilatation. SPLEEN: Normal size. Subcentimeter hypoattenuating lesion in the upper spleen is favored to reflect a benign etiology such as lymphangioma or pseudocyst. PANCREAS: There is a geographic region of hypoattenuation along/adjacent to the inferior margin of the distal pancreatic body measuring approximately 8 mm (coronal image 30) which could reflect a pancreatic cyst or side branch intraductal papillary mucinous neoplasm, or conceivably be due to interdigitation of peripancreatic soft tissues resulting in volume averaging affect, not definitively identified on prior examination.. No significant calcifications. No adjacent inflammation or peripancreatic fluid collections. Pancreatic duct not dilated. ADRENALS: Mild thickening of left adrenal gland which maintains its adreniform shape. Right adrenal gland is normal. KIDNEYS/URINARY TRACT: Unchanged hemorrhagic/proteinaceous cysts along the interpolar region of the right kidney measuring up to 8 mm.. No visualized stones. No hydronephrosis or hydroureter. Symmetric enhancement. Urinary bladder is unremarkable. GI: The stomach is normal. Small bowel anastomotic suture lines at the level of the pelvis are present. There is no small bowel or colonic obstruction, inflammation or perforation. Moderate volume colonic stool burden. Prior appendectomy. PERITONEUM: No ascites or free air. RETROPERITONEUM: No mass or adenopathy. REPRODUCTIVE: Redemonstration of the hypoattenuating left adnexal structure measuring up to 50 x 35 x 42 mm. Prior hysterectomy. VASCULATURE: No abdominal aortic aneurysm. Atherosclerotic calcifications of the abdominal aorta with scattered noncalcified plaques the abdominal aorta and its branches are patent. MUSCULOSKELETAL: No acute fractures or aggressive bone lesions. Prior ventral abdominal wall hernia repair. An ovoid adipose tissues within the right lower quadrant ventral abdominal wall subcutaneous tissues measures 46 x 23 x 26 mm which could reflect a region of fat necrosis. IMPRESSION: 1. Redemonstration of the hypoattenuating left adnexal structure/lesion measuring up to 50 x 35 x 42 mm, not substantially changed compared to prior studies. 2. No lymphadenopathy in the abdomen or pelvis. THIS IS AN ELECTRONICALLY VERIFIED FINAL REPORT 01/13/2025 3:31 PM - Electronically signed by Luis Troncoso M.D. AT T: Report ID: [id number] Reading Location: [id number] Procedure Note Luis Troncoso MD - 01/13/2025 EXAM DESCRIPTION: CT ABDOMEN PELVIS W CONTRAST REASON FOR STUDY: Weight loss, unintended Weight loss for almost one year, no abd pain or vomiting Surg Hx breast cancer, appy, hyst, hernia repair, vasc stent TECHNIQUE: CT scan of the abdomen and pelvis performed with intravenousand without oral contrast using helical scanning technique with dynamic intravenous contrast injection. Reconstructed coronal and sagittal MPRimages reviewed. All images stored on PACS. Automated exposure control was usedas a dose optimization technique for this examination. CONTRAST TYPE/DOSE: 75mL of IOVERSOL 350 MG IODINE/ML INTRAVENOUSSYRINGE injected COMPARISON: 08/20/2022 , 04/23/2022 FINDINGS: LOWER CHEST: Mild scattered subsegmental atelectasis. Nopleural effusion. Heart size is at the upper limits of normal. Imaged portionsof the esophagus are within normal limits. LIVER: Normal size. No identified cystic or solid masses. The hepaticand portal veins are patent. GALLBLADDER: Normal. BILE DUCTS: No intrahepatic or extrahepatic ductal dilatation. SPLEEN: Normal size. Subcentimeter hypoattenuating lesion in the upper spleen is favored to reflect a benign etiology such as lymphangioma or pseudocyst. PANCREAS: There is a geographic region of hypoattenuation along/adjacentto the inferior margin of the distal pancreatic body measuring approximately8 mm (coronal image 30) which could reflect a pancreatic cyst or side branch intraductal papillary mucinous neoplasm, or conceivably be due to interdigitation of peripancreatic soft tissues resulting in volumeaveraging affect, not definitively identified on prior examination.. No significant calcifications. No adjacent inflammation or peripancreatic fluidcollections. Pancreatic duct not dilated. ADRENALS: Mild thickening of left adrenal gland which maintains its adreniform shape. Right adrenal gland is normal. KIDNEYS/URINARY TRACT: Unchanged hemorrhagic/proteinaceous cysts alongthe interpolar region of the right kidney measuring up to 8 mm.. Novisualized stones. No hydronephrosis or hydroureter. Symmetric enhancement.Urinary bladder is unremarkable. GI: The stomach is normal. Small bowel anastomotic suture lines at the level of the pelvis are present. There is no small bowel or colonic obstruction, inflammation or perforation. Moderate volume colonic stool burden. Prior appendectomy. PERITONEUM: No ascites or free air. RETROPERITONEUM: No mass or adenopathy. REPRODUCTIVE: Redemonstration of the hypoattenuating left adnexalstructure measuring up to 50 x 35 x 42 mm. Prior hysterectomy. VASCULATURE: No abdominal aortic aneurysm. Atheroscleroticcalcifications of the abdominal aorta with scattered noncalcified plaques the abdominalaorta and its branches are patent. MUSCULOSKELETAL: No acute fractures or aggressive bone lesions. Prior ventral abdominal wall hernia repair. An ovoid adipose tissueswithin the right lower quadrant ventral abdominal wall subcutaneous tissuesmeasures 46 x 23 x 26 mm which could reflect a region of fat necrosis. IMPRESSION: 1. Redemonstration of the hypoattenuating left adnexal structure/lesion measuring up to 50 x 35 x 42 mm, not substantiallychanged compared to prior studies. 2. No lymphadenopathy in the abdomen or pelvis. THIS IS AN ELECTRONICALLY VERIFIED FINAL REPORT 01/13/2025 3:31 PM - Electronically signed by Luis Troncoso M.D. AT T: Report ID: [id number] Reading Location: [place] [address] us Ashley Lizama MD IMG CT PROCEDURES Final R esult * (ABNORMAL) Iron profile w/ IBC (12/15/2024 2:10 PM CDT) [facility] Iron 51 45 - 160 mcg/dL [facility] TIBC 340 250 - 450 mcg/dL (calc) [facility] Iron saturation 15(L) 16 - 45 % (calc) [facility] Blood 12/15/2024 2:10 PM CDT 12/15/2024 2:10 PM CDT Narrative [facility] - 12/16/2024 9:30 AM CDT FASTING:NO FASTING: NO Adelso Alexander MD LAB BLOOD ORDERABLES Final Resul t [facility] [address] [place] [address] * Vitamin D 25 hydroxy (12/15/2024 2:10 PM CDT) Pathologist [facility] Vitamin D 25-OH 54 30 - 100 ng/mL [facility] Comment: Vitamin D Status 25-OH Vitamin D: Deficiency: <20 ng/mL Insufficiency: 20 - 29 ng/mL Optimal: > or = 30 ng/mL For 25-OH Vitamin D testing on patients on D2-supplementation and patients for whom quantitation of D2 and D3 fractions is required, the QuestAssureD(TM) 25-OH VIT D, (D2,D3), LC/MS/MS is recommended: order code 72250 (patients >2yrs). See Note 1 Note 1 For additional information, please refer to http://education.[facility].com/faq/VYU916 (This link is being provided for informational/ educational purposes only.) Blood 12/15/2024 2:10 PM CDT 12/15/2024 2:10 PM CDT Narrative [facility] - 12/16/2024 9:30 AM CDT FASTING:NO FASTING: NO Adelso Alexander MD LAB BLOOD ORDERABLES Final Resul t Performing Organization Address [facility] Co de Phone Number [facility] [address] [place] [address] * Erythrocyte sedimentation rate (12/15/2024 2:10 PM CDT) Erythrocyte sedimentation rate 11 < OR = 30 mm/h [facility] Blood 12/15/2024 2:10 PM CDT 12/15/2024 2:10 PM CDT Narrative [facility] - 12/16/2024 9:30 AM CDT FASTING:NO FASTING: NO Adelso Alexander MD LAB BLOOD ORDERABLES Final Resul t Performing Organization Address [facility] Phone Number [facility] [address] [place] [address] * CRP (acute phase) (12/15/2024 2:10 PM CDT) C-RP <3.0 <8.0 mg/L [facility] Blood 12/15/2024 2:10 PM CDT 12/15/2024 2:10 PM CDT Narrative [facility] - 12/16/2024 9:30 AM CDT FASTING:NO FASTING: NO Adelso Alexander MD LAB BLOOD ORDERABLES Final Resul t Performing Organization Address [facility] de Phone Number [facility] [address] [place] [address] * TSH (12/15/2024 2:10 PM CDT) TSH 1.72 0.40 - 4.50 mIU/L [facility] Blood 12/15/2024 2:10 PM CDT 12/15/2024 2:10 PM CDT Narrative [facility] - 12/16/2024 9:30 AM CDT FASTING:NO FASTING: NO Adelso Alexander MD LAB BLOOD ORDERABLES Final Resul t Performing Organization Address [facility] de Phone Number [facility] [address] [place] [address] * Vitamin B12 (12/15/2024 2:10 PM CDT) Pathologist [facility] Vitamin B12 361 200 - 1,100 pg/mL [facility] Comment: Please Note: Although the reference range for vitamin B12 is 200-1100 pg/mL, it has been reported that between 5 and 10% of patients with values between 200 and 400 pg/mL may experience neuropsychiatric and hematologic abnormalities due to occult B12 deficiency; less than 1% of patients with values above 400 pg/mL will have symptoms. Blood 12/15/2024 2:10 PM CDT 12/15/2024 2:10 PM CDT Narrative [facility] - 12/16/2024 9:30 AM CDT FASTING:NO FASTING: NO Adelso Alexander MD LAB BLOOD ORDERABLES Final Resul t Performing Organization Address [facility] de Phone Number [facility] [address] [place] [address] * Colonoscopy (09/23/2024 4:48 PM CDT) Anatomical Region Laterality Modality Other Historical Provider ENDOSCOPY PROCEDURES Maureen l Result * Screening Mammogram Bilateral W Yamil (03/02/2024 3:25 PM CDT) Anatomical Region Laterality Modality Breast Bilateral Mammography Impressions 03/02/2024 4:02 PM CDT BI-RADS ATLAS category (overall): 2 - Benign There is no mammographic evidence of malignancy. A 1 year screening mammogram is recommended. The patient has been or will be contacted. We recommend annual screening mammography for women at average risk of breast cancer beginning at age 40, based on guidelines of the [employer] (ACR Practice Parameter for the Performance of Screening and Diagnostic Mammography) and [employer]. For women with and elevated risk of breast cancer, please refer to the ACR Practice Parameter for specific screening recommendations. The patient will be entered into a reminder system with a target due date of 1 year for her next screening exam. Narrative 03/02/2024 4:02 PM CDT Screening Mammogram Bilateral W Yamil: 03/02/24 The study was acquired using full field digital technology and interpreted from soft copy. 2D digital mammographic views, as well as 3D digital tomosynthesis were performed in the CC and MLO projections. CLINICAL: Encounter for screening mammogram for malignant neoplasm of breast Medical history includes breast cancer, chemotherapy, and radiation therapy. Personal history of left breast cancer status post breast conserving therapy. History of breast cancer in Sister. COMPARISONS: 06/28/2022 Screening Mammogram Bilateral W Yaiml 05/04/2021 Screening Mammogram Bilateral W Yamil 01/15/2020 Breast Imaging Screening Outside Reference 09/17/2018 Screening Mammogram Bilateral W Yamil BREAST TISSUE: The breasts are heterogeneously dense, which may obscure small masses. FINDINGS: There are stable postoperative changes in the left breast. There are benign calcifications in both breasts. There is no new suspicious finding in either breast on mammogram. us Mignon Bingham CHECK WRITER IMG MAMMO PROCEDURES Final Re sult * Dexa Axial Skeleton Bone Density 1 or 2 Site (03/02/2024 3:14 PM CDT) Anatomical Region Laterality Modality Body N/A Mammography 03/02/2024 7:01 PM CDT Narrative 03/02/2024 7:02 PM CDT EXAM DESCRIPTION: DEXA AXIAL SKELETON BONE DENSITY 1 OR MORE SITES REASON FOR STUDY: 78 y/o year old F with given history of: post-menopausal osteoporosis prevention Stator Connector/Model: Scalado A (S/N [id number]) CLINICAL INFORMATION: Current height: 16 inches Maximum height: 62 inches Weight: 90 pounds Risk factors: Postmenopausal, cancer COMPARISON: 05/04/2021 FINDINGS: AP LUMBAR SPINE L1-L4: Total BMD is 0.903 g/cm2 T-score is -1.3 This is increased in comparison to prior exam which is statistically significant. LEFT HIP: Total BMD is 0.738 g/cm2 T-score is -1.7 This is increased in comparison to prior exam which is statistically significant. Femoral neck BMD is 0.545 g/cm2 T-score is -2.7 FRAX: FRAX not reported due to T-scores of hip, femoral neck and/or spine being at or below -2.5 (Osteoporosis). IMPRESSION: Osteoporosis. REFERENCE: Bone mineral density: T-Score: Normal (T-score above or = -1.0) Low bone mass (T-score between -1.0 and -2.5) replaces the previously used term osteopenia Osteoporosis (T-score = or below -2.5) Z-Score: Within the expected range for age (Z-score above -2.0) Below the expected range for age (Z-score is -2.0 or below) Please see below follow up recommendations. Medical evaluation for secondary causes of low bone mineral density may be appropriate. FRAX is a World Health Organization validated fracture risk assessment tool that calculates a person's 10 year probability of a major osteoporosis related fracture and hip fracture. According to the National Osteoporosis Foundation guidelines, postmenopausal women and men age 50 or older with low bone mass and a 10 year probability of a major osteoporosis related fracture = or greater than 20% or a 10 year probability of a hip fracture = or greater than 3% should be considered for pharmacological treatment for the prevention of osteoporosis. For further information, including treatment recommendations, please refer to the 2019 ISCD Official Positions (http://www.iscd.org) and the NOF's Clinician's Guide to Prevention and Treatment of Osteoporosis (http://www.nof.org/professionals/clinical-guidelines) THIS IS AN ELECTRONICALLY VERIFIED FINAL REPORT 03/02/2024 7:02 PM - Electronically signed by Benton Dumas M.D. MF: [email or web address] Report ID: [id number] Reading Location: [id number] Procedure Note Benton Dumas MD - 03/02/2024 EXAM DESCRIPTION: DEXA AXIAL SKELETON BONE DENSITY 1 OR MORE SITES REASON FOR STUDY: 78 y/o year old F with given history of: post-menopausal osteoporosis prevention Stator Connector/Model: Scalado A (S/N [id number]) CLINICAL INFORMATION: Current height: 16 inches Maximum height: 62 inches Weight: 90 pounds Risk factors: Postmenopausal, cancer COMPARISON: 05/04/2021 FINDINGS: AP LUMBAR SPINE L1-L4: Total BMD is 0.903 g/cm2 T-score is -1.3 This is increased in comparison to prior exam which is statistically significant. LEFT HIP: Total BMD is 0.738 g/cm2 T-score is -1.7 This is increased in comparison to prior exam which is statistically significant. Femoral neck BMD is 0.545 g/cm2 T-score is -2.7 FRAX: FRAX not reported due to T-scores of hip, femoral neck and/or spine beingat or below -2.5 (Osteoporosis). IMPRESSION: Osteoporosis. REFERENCE: Bone mineral density: T-Score: Normal (T-score above or = -1.0) Low bone mass (T-score between -1.0 and -2.5) replaces thepreviously used term osteopenia Osteoporosis (T-score = or below -2.5) Z-Score: Within the expected range for age (Z-score above -2.0) Below the expected range for age (Z-score is -2.0 or below) Please see below follow up recommendations. Medical evaluation forsecondary causes of low bone mineral density may be appropriate. FRAX is a World Health Organization validated fracture risk assessmenttool that calculates a person's 10 year probability of a major osteoporosisrelated fracture and hip fracture. According to the National OsteoporosisFoundation guidelines, postmenopausal women and men age 50 or older with low bonemass and a 10 year probability of a major osteoporosis related fracture = or greater than 20% or a 10 year probability of a hip fracture = or greaterthan 3% should be considered for pharmacological treatment for the preventionof osteoporosis. For further information, including treatment recommendations, please referto the 2019 ISCD Official Positions (http://www.iscd.org) and the NOF's Clinician's Guide to Prevention and Treatment of Osteoporosis (http://www.nof.org/professionals/clinical-guidelines) THIS IS AN ELECTRONICALLY VERIFIED FINAL REPORT 03/02/2024 7:02 PM - Electronically signed by Benton Dumas M.D. MF: [id number] Report ID: [id number] Reading Location: [place] [address] us Mignon Bingham CHECK WRITER IMG DXA PROCEDURES Final Resu lt * Hepatitis C antibody (06/12/2019 8:38 AM CLOTH STRETCHER) Hep C Ab NON-REACT BRETT NON-REACT BRETT [facility] SIGNAL TO CUT-OFF 0.00 <1.00 [facility] [place] Comment: HCV antibody was non-reactive. There is no laboratory evidence of HCV infection. In most cases, no further action is required. However, if recent HCV exposure is suspected, a test for HCV RNA (test code 93511) is suggested. For additional information please refer to http://education.[employer]/faq/YUX40y5 (This link is being provided for informational/ educational purposes only.) Blood specimen (specimen) 06/12/2019 8:38 AM CLOTH STRETCHER 06/12/2019 8:39 AM CLOTH STRETCHER Narrative [facility] - 06/13/2019 6:31 PM CLOTH STRETCHER FASTING:YES FASTING: YES Resulting Agency Comment Performing Organization Information: Site ID: [id number] Name: [facility] Address: [address] [address] Director: Brian Lyn D.O., MPH us Mercedes Dennis MD LAB MICROBIOLOGY - GENERAL ORDERABLES Final Result [facility] [place] [address] from Last 3 Months or Most Recently Relevant to Health Maintenance Insurance HEALTHCARE Member Subscriber Plan / Payer (Ef fective 2012-Present) Name:Ashley Stokes Duy Relation to Subscriber:Self Name:Ashley Stokes Duy Payer ID:[id number] (NAIC) Type:MEDICARE RISK OTHER Address: [address] [place] [id number] [facility] [employer]GM Advance Directives For more information, please contact: [phone] * Full Code (Latest Code Status on File) Date Activated Date Inactivated Comments 08/20/2022 9:16 PM 08/27/2022 4:33 PM Care Teams Retail Interior Designer Relationship Specialty Start Date End Date Adelso Alexander MD [address] [facility] [address] [place] [address] PCP - General Family Medicine 09/10/24 Casey Baig MD [address] [facility] [address] [place] [address] Surgeon Vascular Surgery 01/01/22 Ashley Lizama MD [address] [place] [address] Consulting Physician Gastroenterology 06/03/23 Felipa Davis MD [address] [place] [address] Referring Physician Fiber Optic Assembly Worker 06/03/23 [place] [address] [place] [address] Nurse Practitioner Pain Management 06/03/23
--- OUTSIDE RECORDS SUMMARY | 2025-02-13 08:58 | XMS_ITS | Clinical Summary ---
Author Organization [facility] Address [address] [place] [address] Care Team Providers Care Hand Packer Name Role Phone Adelso Alexander MD Primary Care Provider [phone] Source Comments [facility],non-owned Affiliates and Associated Physician Practices is amultiple site organization consisting of ambulatory clinics and hospital sitesin [place], [place], [place] and [place]. This disclosure is being madepursuant to the Care Everywhere program and may not contain all information available regarding this patient. Last updated 18.[facility] Allergies Active Allergy Reactions Criticality Noted Date Comments Codeine Nausea and/or Vomiting Low 08/27/2018 INJECTABLE Morphine Nausea and/or Vomiting Low 08/27/2018 INJECTABLE Medications * Be aware that medications may not be up to date on this document. Alwaysverify current medications with the patient. atorvastatin (Lipitor) 40 MG tablet Take 1 (one) tablet by mouth once daily 04/30/2023 Active clopidogrel (plaVIX) 75 MG tablet Take 1 (one) tablet by mouth once daily 04/29/2023 Active diclofenac sodium (Voltaren) 1 % gel 05/13/2023 Active lisinopril (Prinivil; Zestril) 20 MG tablet Take 1 (one) tablet by mouth once daily 04/29/2023 Active zaleplon (Sonata) 5 MG capsule TAKE 1 CAPSULE (5 MG TOTAL) BY MOUTH NIGHTLY NEEDED FOR SLEEP 02/14/2023 Active traZODone (Desyrel) 100 MG tablet Take 1 (one) tablet by mouth 12/09/2023 Active ferrous sulfate 325 (65 FE) MG tablet Take 1 (one) tablet by mouth once daily 06/08/2024 Active HYDROcodone-layo taminophen ([place]) 7.5-325 MG tablet Take 1 (one) tablet by mouth every 6 hours as needed 07/31/2024 Active ibandronate (Boniva) 150 MG tablet Take 1 (one) tablet by mouth 06/08/2024 Active mirtazapine (Remeron) 15 MG tablet Take 1 (one) tablet by mouth at bedtime 09/10/2024 Active Active Problems No known active problems Immunizations Immunization Administration Dates Next Due INFLUENZA VACCINE 03/26/2023, 2,05/03/2021,2019 INFLUENZA VACCINE, HIGH-DOSE , QUADR. (FLUZONE HIGH-DOSE QUADRIVALENT; 65Y+), 0.7 ML (HD-IIV4) 02/24/2019,04/09/2018,06/14/2016 PNEUMOCOCCAL PPSV23 05/27/2014 TDAP (7yrs+) 11/20/2019 Social History Tobacco Use Types Packs/Day Years Used Date Smoking Tobacco: Never Passive Smoke Exposure: Never Smokeless Tobacco: Never Tobacco Cessation:Counseling Given: Not Answered PHQ-2 Answer Date Recorded Patient Health Questionnaire-2 Score 1 09/25/2024 Comments No Sex and Gender Information Value Date Recorded Sex Assigned at Not on file Legal Sex Female 5:49 AM INTERVENTION SPECIALIST Gender Identity Not on file Sexual Orientation Not on file Last Filed Vital Signs Vital Sign Reading Time Taken Comments Blood Pressure 103/85 09/25/2024 10:02 AM CDT Pulse 76 09/25/2024 10:02 AM CDT Temperature - - Respiratory Rate 16 09/25/2024 10:02 AM CDT Oxygen Saturation 97% 09/25/2024 10:02 AM CDT Inhaled Oxygen Concentration - - Weight 39.1 kg (86 lb 3.2 oz) 09/25/2024 10:02 A M CDT Height 152.4 cm (5') 05/22/2024 10:24 AM INTERVENTION SPECIALIST Body Mass Index 16.83 05/22/2024 10:24 AM INTERVENTION SPECIALIST Plan of Treatment Health Maintenance Due Date Last Done Comments MEDICARE AWV 12 MONTHS 1945 ZOSTER VACCINE (1 of 2) 1996 PNEUMOCOCCAL VACCINE 50+ (2 of 2 - PCV) 05/27/2015 05/27/2014 Respiratory Syncytial Virus (RSV) Vaccine Pt: or over 60 yrs (1 - 1-dose 75+ series) 2021 COVID-19 VACCINE (3 - 2024- season) 2025 08/12/2020, 07/23/2020 INFLUENZA VACCINE (#1) 2025 , 03/26/2023, 03/05/2022, Additional history exists DTAP/TDAP/TD VACCINES (2 - Td or Tdap) 11/19/2029 11/20/2019 HEPATITIS C SCREENING Completed 05/14/2023 BONE DENSITY TESTING Completed 03/02/2024, 05/04/20 21 DEPRESSION SCREENING Completed 09/25/2024, 05/22/20 24 HEPATITIS B VACCINE Aged Out No longe r eligible based on patient's age to complete this topic HIB VACCINE Aged Out No longer eligi ble based on patient's age to complete this topic HPV VACCINE Aged Out No longer eligi ble based on patient's age to complete this topic MENINGOCOCCAL (Group B) VACCINE SHARED DECISION-MAKING Aged Out No longer eligible based on patient's age to complete this topic MENINGOCOCCAL GROUPS A/C/Y/W VACCINE Aged Out No longer eligible based on patient's age to complete this topic Procedures Procedure Name Priority Date/Time Associated Diagnosis Comments HEPATITIS SCREEN ACUTE ([facility]) Routine 05/14/2023 12:07 PM INTERVENTION SPECIALIST PMR (polymyalgia rheumatica) Vitamin D deficiency [place] Postmenopausal osteoporosis from Last 3 Months or Most Recently Relevant to Health Maintenance Results * HEPATITIS SCREEN ACUTE ([facility]) (05/14/2023 12:07 PM INTERVENTION SPECIALIST) Hepatitis A Virus Antibody IgM Non Reactive Non Reactive [facility] INSURANCE BILL Hepatitis B Virus Surface Antigen Non Reactive Non Reactive [facility] INSURANCE BILL Hepatitis B Core Virus Antibody IgM Non Reactive Non Reactive [facility] INSURANCE BILL Hepatitis C Antibody Non Reactive Non Reactive [facility] INSURANCE BILL Comment: Non Reactive - Antibodies to Hepatitis C virus (HCV) were no t detected, result does not exclude early acute HCV infection. Blood BLOOD SPECIMEN / Unknown 05/14/2023 12:07 PM INTERVENTION SPECIALIST 05/14/2023 Narrative Resulting Agency Comment Lab Testing performed at: [facility] [id number] [place] [address] [place] [id number] [place] Felipa Davis MD LAB - CHEMISTRY ORDERABLES Maureen arias Result [facility] INSURANCE BILL [address] [place] [address] from Last 3 Months or Most Recently Relevant to Health Maintenance Insurance [facility] MEDICARE Care Teams Hand Packer Relationship Specialty Start Date End Date Adelso Alexander MD [address] [facility] [address] [place] [phone] PCP - General Family Medicine 09/26/23
--- OUTSIDE RECORDS SUMMARY | 2025-02-13 08:58 | XMS_ITS | Encounter Summary ---
Author Organization [facility] Facility Care Team Providers Care Arch Cushion Skiving Machine Operator Name Role Phone Casey Baig MD Unavailable [phone] Mercedes Sam RN Unavailable [phone] Mignon Bingham NP Primary Care Provider [phone] Ashley Lizama MD Unavailable [phone] Felipa Davis MD Unavailable [phone] Homero Coburn NP Unavailable [phone] Adelso Alexander MD Primary Care Provider [phone] Encounter Details Date Type Department Care Team (Latest Contact Info) Description 09/20/2017 Orders Only [facility] CLINCON[facility] ProviderLeslie MD [address] [place] [address] Social History Tobacco Use Types Packs/Day Years Used Date Smoking Tobacco: Never Assessed Comments Unknown Sex and Gender Information Value Date Recorded Sex Assigned at Not on file Legal Sex Female 10:32 AM SITE SUPERVISING TECHNICAL OPERATOR Gender Identity Female 10/08/2019 6:23 AM CDT Sexual Orientation Straight 10/08/2019 6: 23 AM CDT documented as of this encounter Plan of Treatment Not on file documented as of this encounter Procedures Procedure Name Priority Date/Time Associated Diagnosis Comments PROCEDURE - RESULT 09/20/2017 12 :00 AM CDT documented in this encounter Results * PROCEDURE - RESULT (09/20/2017 12:00 AM CDT) Narrative 09/20/2017 12:00 AM CDT Ordered by an unspecified provider. us Historical Provider MD Final Res ult documented in this encounter Visit Diagnoses Not on filedocumented in this encounter Care Teams Arch Cushion Skiving Machine Operator Relationship Specialty Start Date End Date Mignon Bingham NP [address] [facility] [address] [place] [address] PCP - General Family Medicine 04/29/23 09/09/24 Adelso Alexander MD [address] [facility] [address] [place] [address] PCP - General Family Medicine 09/10/24 Casey Baig MD [address] [facility] [address] [facility] [address] [place] [address] Surgeon Vascular Surgery 01/01/22 Mercedes Sam RN [address] [place] [address] [place] [address] Thread Singer 08/28/22 09/25/22 Ashley Lizama MD [address] [facility] [address] [place] [address] Consulting Physician Gastroenterology 06/03/23 Felipa Davis MD [address] [address] Referring Physician Pbx Technician 06/03/23 [place] [address] [address] [facility] [address] [place] [address] Nurse Practitioner Pain Management 06/03/23 documented as of this encounter
--- OUTSIDE RECORDS SUMMARY | 2025-02-13 08:58 | XMS_ITS | Encounter Summary ---
Author Organization [facility] Facility Care Team Providers Care Nuclear Equipment Test Engineer Name Role Phone Casey Baig MD Unavailable [phone] Mercedes Sam RN Unavailable [phone] Mignon Bingham NP Primary Care Provider [phone] Ashley Lizama MD Unavailable [phone] Felipa Davis MD Unavailable [phone] Homero Coburn NP Unavailable [phone] Adelso Alexander MD Primary Care Provider [phone] Encounter Details Date Type Department Care Team (Latest Contact Info) Description 07/25/2016 Orders Only [facility] CLINCONV ProviderLeslie MD [address] [place] [address] Social History Tobacco Use Types Packs/Day Years Used Date Smoking Tobacco: Never Assessed Comments Unknown Sex and Gender Information Value Date Recorded Sex Assigned at Not on file Legal Sex Female 10:32 AM COMPUTER CUSTOMER SUPPORT SPECIALIST Gender Identity Female 10/08/2019 6:23 AM CDT Sexual Orientation Straight 10/08/2019 6: 23 AM CDT documented as of this encounter Plan of Treatment Not on file documented as of this encounter Procedures Procedure Name Priority Date/Time Associated Diagnosis Comments CARDIOLOGY REPORT 07/25/2016 12: 00 AM COMPUTER CUSTOMER SUPPORT SPECIALIST documented in this encounter Results * CARDIOLOGY REPORT (07/25/2016 12:00 AM COMPUTER CUSTOMER SUPPORT SPECIALIST) Anatomical Region Laterality Modality Other Narrative 07/25/2016 12:00 AM COMPUTER CUSTOMER SUPPORT SPECIALIST Ordered by an unspecified provider. us Historical Provider [facility] REBEKAH AMARO Final Result documented in this encounter Visit Diagnoses Not on filedocumented in this encounter Care Teams Nuclear Equipment Test Engineer Relationship Specialty Start Date End Date Mignon Bingham NP [address] [facility] [address] [place] [address] PCP - General Family Medicine 04/29/23 09/09/24 Adelso Alexander MD [address] [facility] [address] [place] [address] PCP - General Family Medicine 09/10/24 Casey Baig MD [address] [facility] [address] [facility] [address] [place] [address] Surgeon Vascular Surgery 01/01/22 Mercedes Sam, ARMANDO [address] [place] [address] Production Service Manager 08/28/22 09/25/22 Ashley Lizama MD [address] [facility] [address] [place] [address] Consulting Physician Gastroenterology 06/03/23 Felipa Davis MD [address] [facility] [address] [place] [address] Referring Physician Steeple Jack 06/03/23 [place] [address] [address] [facility] [address] [place] [address] Nurse Practitioner Pain Management 06/03/23 documented as of this encounter
--- OUTSIDE RECORDS SUMMARY | 2025-02-13 08:58 | XMS_ITS | Encounter Summary ---
Author Organization [facility] Facility Care Team Providers Care Field Services Analyst Name Role Phone Casey Baig MD Unavailable [phone] Mercedes Sam RN Unavailable [phone] Mignon Bingham NP Primary Care Provider [phone] Ashley Lizama MD Unavailable [phone] Felipa Davis MD Unavailable [phone] Homero Coburn NP Unavailable [phone] Adelso Alexander MD Primary Care Provider [phone] Encounter Details Date Type Department Care Team (Latest Contact Info) Description 04/11/2017 Orders Only [facility] CLINCONV Provider, MD Leslie [address] [place] [address] Social History Tobacco Use Types Packs/Day Years Used Date Smoking Tobacco: Never Assessed Comments Unknown Sex and Gender Information Value Date Recorded Sex Assigned at Not on file Legal Sex Female 10:32 AM VICE PRESIDENT RISK MANAGEMENT Gender Identity Female 10/08/2019 6:23 AM CDT Sexual Orientation Straight 10/08/2019 6: 23 AM CDT documented as of this encounter Plan of Treatment Not on file documented as of this encounter Procedures Procedure Name Priority Date/Time Associated Diagnosis Comments SCAN - LABS 06/04/2017 12:00 AM VICE PRESIDENT RISK MANAGEMENT documented in this encounter Results * SCAN - LABS (06/04/2017 12:00 AM VICE PRESIDENT RISK MANAGEMENT) Narrative 06/04/2017 12:00 AM VICE PRESIDENT RISK MANAGEMENT Ordered by an unspecified provider. us Historical Provider Final Res ult documented in this encounter Visit Diagnoses Not on filedocumented in this encounter Care Teams Field Services Analyst Relationship Specialty Start Date End Date Mignon Bingham NP [address] [facility] [address] [place] [address] PCP - General Family Medicine 04/29/23 09/09/24 Adelso Alexander MD [address] [facility] [address] [place] [address] PCP - General Family Medicine 09/10/24 Casey Baig MD [address] [facility] [address] [facility] [address] [place] [address] Surgeon Vascular Surgery 01/01/22 Mercedes Sam, RN [address] [place] [address] [place] [address] Clinical Social Work Aide 08/28/22 09/25/22 Ashley Lizama MD [address] [address] Consulting Physician Gastroenterology 06/03/23 Felipa Davis MD [address] [address] Referring Physician Under Cutter 06/03/23 [place] [address] [facility] [address] [place] [address] Nurse Practitioner Pain Management 06/03/23 documented as of this encounter
--- OUTSIDE RECORDS SUMMARY | 2025-02-13 08:58 | XMS_ITS | Encounter Summary ---
Author Organization [facility] Facility Care Team Providers Care Cooperative Manager Name Role Phone Casey Baig MD Unavailable [phone] Mercedes Sam RN Unavailable [phone] Mignon Bingham NP Primary Care Provider [phone] Ashley Lizama MD Unavailable [phone] Felipa Davis MD Unavailable [phone] Homero Coburn NP Unavailable [phone] Adelso Alexander MD Primary Care Provider [phone] Encounter Details Date Type Department Care Team (Latest Contact Info) Description 07/24/2017 Orders Only [facility] CLINCONV ProviderLeslie MD [address] [place] [address] Social History Tobacco Use Types Packs/Day Years Used Date Smoking Tobacco: Never Assessed Comments Unknown Sex and Gender Information Value Date Recorded Sex Assigned at Not on file Legal Sex Female 10:32 AM MOVIE CRITIC Gender Identity Female 10/08/2019 6:23 AM CDT Sexual Orientation Straight 10/08/2019 6: 23 AM CDT documented as of this encounter Plan of Treatment Not on file documented as of this encounter Procedures Procedure Name Priority Date/Time Associated Diagnosis Comments COLONOSCOPY - SCAN 07/31/2017 12 :00 AM MOVIE CRITIC documented in this encounter Results * COLONOSCOPY - SCAN (07/31/2017 12:00 AM MOVIE CRITIC) Narrative 07/31/2017 12:00 AM MOVIE CRITIC Ordered by an unspecified provider. us Historical Provider Final Res ult documented in this encounter Visit Diagnoses Not on filedocumented in this encounter Care Teams Cooperative Manager Relationship Specialty Start Date End Date Mignon Bingham NP [address] [facility] [place] [facility] [address] [place] [address] PCP - General Family Medicine 04/29/23 09/09/24 Adelso Alexander MD [address] [facility] [place] [facility] [address] [place] [address] PCP - General Family Medicine 09/10/24 Casey Baig MD [address] [facility] [place] [facility] [address] [facility] [address] [place] [address] Surgeon Vascular Surgery 01/01/22 Mercedes Sam, RN [address] [place] [address] [place] [address] Supervisor Typesetting 08/28/22 09/25/22 Ashley Lizama MD [address] [address] Consulting Physician Gastroenterology 06/03/23 Felipa Davis MD [address] [address] Referring Physician Picker Machine Operator 06/03/23 [place] [address] [address] [facility] [address] [place] [address] Nurse Practitioner Pain Management 06/03/23 documented as of this encounter
--- OUTSIDE RECORDS SUMMARY | 2025-02-13 08:58 | XMS_ITS | Encounter Summary ---
Author Organization [facility] Healthcare Address [address] [place] [address] Care Team Providers Care Metal Loader Name Role Phone Casey Baig MD Unavailable [phone] Mignon Bingham NP Primary Care Provider [phone] Ashley Lizama MD Unavailable [phone] Felipa Davis MD Unavailable [phone] Homero Coburn NP Unavailable [phone] Adelso Alexander MD Primary Care Provider [phone] Reason for Referral * MRI/CAT/PET Scan (Routine) - Closed Specialty Diagnoses / Procedures Referred By Contac t Referred To Contact Radiology Diagnoses Weight loss Procedures CT ABDOMEN PELVIS W CONTRAST Ashley Lizama MD [address] [facility] [address] [place] [address] Phone: tel: fax: [facility] [address] [place] [phone] Referral ID Status Reason Start Date Expiration Date Visits Re quested Visits Authorized [id number] Closed 08/03/2024 09/02/2025 1 1 Encounter Details Date Type Department Care Team (Late st Contact Info) Description 08/03/2024 Community Orders [facility] EpicCare Link Ashley Lizama MD [address] [place] [address] [place] [address] Weight loss (Primary Dx) Social History Tobacco Use Types Packs/Day Years [...] week 09/07/2022 How often do you attend [facility] or anabaptist services? More than 4 times per year 09/07/2022 Do you belong to any clubs o r organizations such as restoration groups, unions, fraternal or athletic groups, or school groups? Yes 09/07/2022 How often do you attend meet ings of the clubs or organizations you belong to? Never 09/07/2022 Are you , , di vorced, , never , or living with a partner? 09/07/2022 AUDIT-C Answer Date Recorded Q1: How often do you have a drink containing alcohol? Never 06/08/2024 Q2: How many drinks containi ng alcohol do you have on a typical day when you are drinking? Patient does not drink Q3: How often do you have si x or more drinks on one occasion? Never 06/08/2024 Overall Financial Resource Strain (CARDIA) Answe r Date Recorded How hard is it for you to pa y for the very basics like food, housing, medical care, and heating? Not very hard 09/07/2022 PHQ-2 Answer Date Recorded PHQ-2 Total Score (If total score is 3 or more points, staff should administer the PHQ-9) 0 03/24/2024 Hunger Vital Sign Answer Date Recorded Within [...] on file Legal Sex Female 10:32 AM CUSTOMER CARE VOICE CONSULTANT Gender Identity Female 10/08/2019 6:23 AM CDT Sexual Orientation Straight 10/08/2019 6: 23 AM CDT documented as of this encounter Plan of Treatment Not on file documented as of this encounter Results * CT ABDOMEN PELVIS W CONTRAST [...] Luis Troncoso M.D. AT T: Report ID: [id number] Reading Location: [id number] Procedure Note Luis Troncoso MD - 01/13/2025 [...] Luis Troncoso M.D. AT T: Report ID: [id number] Reading Location: [place] [address] Ashley Lizama MD IMG CT PROCEDURES Final R esult documented in this encounter Visit Diagnoses Diagnosis Weight loss- Primary Loss of weight Weight loss Loss of weight documented in this encounter Care Teams Metal Loader Relationship Specialty Start Date End Date Mignon Bingham NP [address] [facility] [address] [place] [address] PCP - General Family Medicine 04/29/23 09/09/24 Adelso Alexander MD [address] [facility] [address] [place] [address] PCP - General Family Medicine 09/10/24 Casey Baig MD [address] [facility] [address] [place] [address] [place] [address] Surgeon Vascular Surgery 01/01/22 Ashley Lizama MD [address] [facility] [address] [place] [address] Consulting Physician Gastroenterology 06/03/23 Felipa Davis MD [address] [facility] [place] [address] Referring Physician Card Room Manager 06/03/23 [place] [address] [place] [address] Nurse Practitioner Pain Management 06/03/23 documented as of this encounter
--- OUTSIDE RECORDS SUMMARY | 2025-02-13 08:58 | XMS_ITS | Encounter Summary ---
Author Organization [facility] Healthcare Address [address] [place] [address] Care Team Providers Care Blacktop Spreader Name Role Phone Casey Baig MD Unavailable [phone] Ashley Lizama MD Unavailable [phone] Felipa Davis MD Unavailable [phone] Homero Coburn NP Unavailable [phone] Adelso Alexander MD Primary Care Provider [phone] Encounter Details Date Type Department Care Team (Late st Contact Info) Description 12/16/2024 Results Follow-Up [facility] Family Medicine at [address] [place] [address] Adelso Alexander MD [address] [place] [address] [address] [place] [address] TSH, Iron profile w/ IBC, Erythrocyte sedimentation rate, Additional followed-up results: 3 Social History Tobacco Use Types Packs/Day Years [...] How often do you attend chur or hinduism services? More than 4 times per year 09/07/2022 Do you belong to any clubs o r organizations such as roman catholic groups, unions, fraternal or athletic groups, or [...] on file Legal Sex Female 10:32 AM ORGANIC LAB WORKER Gender Identity Female 10/08/2019 6:23 AM CDT Sexual Orientation Straight 10/08/2019 6: 23 AM CDT documented as of this encounter Plan of Treatment Not on file documented as of this encounter Visit Diagnoses Not on filedocumented in this encounter Care Teams Blacktop Spreader Relationship Specialty Start Date End Date Adelso Alexander MD [address] [facility] [address] [place] [address] PCP - General Family Medicine 09/10/24 Casey Baig MD [address] [facility] [address] [place] [address] [place] [address] Surgeon Vascular Surgery 01/01/22 Ashley Lizama MD [address] [place] [address] [place] [address] Consulting Physician Gastroenterology 06/03/23 Felipa Davis MD [address] [place] [address] [place] [address] Referring Physician Liquid Natural Gas Plant Operator 06/03/23 [place] [address] [address] [facility] [address] [place] [address] Nurse Practitioner Pain Management 06/03/23 documented as of this encounter
[2025-02-13 12:02] LABS: Hematocrit 40.4 % (37.0-47.0); Hemoglobin 12.5 g/dL (12.0-15.0); Immature Granulocyte Percent A 0.5 % (0-0.5); Lymphocytes Absolute Auto 0.39 K/mm3 (0.9-3.2); Mean Corpuscular HGB Conc 30.9 g/dl (32-36); Mean Corpuscular Hemoglobin 29.7 pg (26-34); Mean Corpuscular Volume 96.0 fl (80-100); Nucleated Red Blood Cells Absolute Auto 0.000 K/mm3 (0.0-0.012); Nucleated Red Blood Cells Perc 0.0 % (0.0-0.2); Platelet Count Result 302 k/mm3 (150-375); Red Blood Count 4.21 M/mm3 (4.2-5.4); White Blood Count 8.8 K/mm3 (4.5-10.0)
[2025-02-13 13:01] LABS: Add Urine Microscopic? YES; Appearance Urine Cloudy (Clear); Glucose Urine UA Negative (Negative); Leukocyte Esterase Ur 3+ LEU/UL (Negative); Nitrate Urine Positive (Negative); Non Pathogenic Casts 0-2; Specific Grav Ur 1.019 (1.001-1.035)
--- OUTSIDE RECORDS SUMMARY | 2025-02-13 13:26 | XMS_ITS | Clinical Summary ---
Author Organization [facility] Address [facility] [place] [address] Care Team Providers Care Corrugated Sheet Material Sheeter Name Role Phone Unavailable Primary Care Provider [...]
--- OUTSIDE RECORDS SUMMARY | 2025-02-13 13:26 | XMS_ITS | Encounter Summary ---
Author Organization [facility] Healthcare Address [address] [place] [address] Care Team Providers Care Solutions Development Analyst Name Role Phone Casey Baig MD Unavailable [phone] Ashley Lizama MD Unavailable [phone] Felipa Davis MD Unavailable [phone] Homero Coburn NP Unavailable [phone] Adelso Alexander MD Primary Care Provider [phone] Encounter Details Date Type Department Care Team (Late st Contact Info) Description 02/12/2025 Telephone [facility] Family Medicine at [address] [place] [address] Adelso Alexander MD [address] [place] [address] [address] [place] [address] Social History Tobacco Use Types Packs/Day Years [...] often do you attend chur ch or quaker services? More than 4 times per year 09/07/2022 Do you belong to any clubs o r organizations such as latter day groups, unions, fraternal or athletic groups, or [...] on file Legal Sex Female 10:32 AM ICU SPECIALIST Gender Identity Female 10/08/2019 6:23 AM CDT Sexual Orientation Straight 10/08/2019 6: 23 AM CDT documented as of this encounter Miscellaneous Notes * Telephone Encounter - Frieda Rahman, RN - 02/12/2025 10:30 AM CDT Fax sent for [employer]. Scanned into media documented in this encounter Plan of Treatment Not on file documented as of this encounter Visit Diagnoses Not on filedocumented in this encounter Care Teams Solutions Development Analyst Relationship Specialty Start Date End Date Adelso Alexander MD [address] [facility] [address] [place] [address] PCP - General Family Medicine 09/10/24 Casey Baig MD [address] [facility] [address] [place] [address] Surgeon Vascular Surgery 01/01/22 Ashley Lizama MD [address] [place] [address] Consulting Physician Gastroenterology 06/03/23 Feliap Davis MD [address] [place] [address] Referring Physician Manager Office 06/03/23 [place] [address] [address] [place] [address] Nurse Practitioner Pain Management 06/03/23 documented as of this encounter
--- OUTSIDE RECORDS SUMMARY | 2025-02-13 13:26 | XMS_ITS | Encounter Summary ---
Author Organization [facility] Facility Care Team Providers Care Fermentation Scientist Name Role Phone Casey Baig MD Unavailable [phone] Mercedes Sam RN Unavailable [phone] Mignon Bingham NP Primary Care Provider [phone] Ashley Lizama MD Unavailable [phone] Felipa Davis MD Unavailable [phone] Homero Coburn NP Unavailable [phone] Adelso Alexander MD Primary Care Provider [phone] Encounter Details Date Type Department Care Team (Latest Contact Info) Description 07/25/2016 Orders Only [facility] ProviderLeslie MD [address] [place] [id number] Social History Tobacco Use Types Packs/Day Years Used Date Smoking Tobacco: Never Assessed Comments Unknown Sex and Gender Information Value Date Recorded Sex Assigned at Not on file Legal 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 us Historical Provider [facility] RE[facility]ARO Final Result documented in this encounter Visit Diagnoses Not on filedocumented in this encounter Care Teams Fermentation Scientist Relationship Specialty Start Date End Date Mignon Bingham NP [address] [facility] [address] [place] [address] PCP - General Family Medicine 04/29/23 09/09/24 Adelso Alexander MD [address] [facility] [address] [place] [address] PCP - General Family Medicine 09/10/24 Casey Baig MD [address] [facility] [address] [facility] [address] [place] [address] Surgeon Vascular Surgery 01/01/22 Mercedes Sam, ARMANDO [address] [place] [address] Equity Director 08/28/22 09/25/22 Ashley Lizama MD [address] [facility] [address] [place] [address] Consulting Physician Gastroenterology 06/03/23 Felipa Davis MD [address] [facility] [address] [place] [address] Referring Physician Access Analyst 06/03/23 [place] [address] [facility] [address] [place] [address] Nurse Practitioner Pain Management 06/03/23 documented as of this encounter
--- OUTSIDE RECORDS SUMMARY | 2025-02-13 13:26 | XMS_ITS | Clinical Summary ---
Author Organization [address] Address [address] [place] [id number] Care Team Providers Care Crematory Attendant Name Role Phone Casey Baig MD Unavailable [phone] Ashley Lizama MD Unavailable [phone] Felipa Davis MD Unavailable [phone] Homero Coburn NP Unavailable [phone] Adelso Alexander MD Primary Care Provider [phone] Allergies Active Allergy Reactions Criticality Noted Date [...] vomiting type 4 mg oral Once 02/13/2025 02/13/2025 Ended Active Problems Problem Noted Date Diagnosed Date Neck pain 01/18/2025 Paresthesia of hand, bilateral 09/24/2024 Iron deficiency anemia 03/24/2024 Assessment & Plan (06/08/2024 4:29 PM SALES WAREHOUSE DRIVER): HPI: Condition is not at/near goal. Last [...] 03/24/2024 Assessment & Plan (06/08/2024 4:30 PM SALES WAREHOUSE DRIVER): HPI: Condition is not at/near goal. Son [...] and shoulder pain and states that the Lancaster from pain management is helping a little bit. She does use voltaren gel, lidocaine patches, and ice without much relief. Rheumatology is tapering Prednisone from 5mg twice daily to once daily with plans to d/c and consider Methotrexate. A&P: Continue on Prednisone 5mg daily and Lancaster 7.5-325mg tablet daily from pain management. Continue to see Dr. Coburn, Pain Management and Dr. Quintanilla, Dressing Room Attendant. Assessment & Plan (12/09/2023 5:34 PM CDT): HPI: Condition is not at/near goal. Patient complains of intolerable neck and shoulder pain and states that the Lancaster from pain management is not cutting it anymore - she is asking for an increase in dose. She does use voltaren gel, lidocaine patches, and ice without much relief. She did previously get Prednisone 10mg twice daily from previous PCP which she states is the only thing that has really helped her pain tank terminal gauger. I did temporarily take over prescribing this but have explained to patient on multiple occasions that after follow up with rheumatology I will no longer be giving [facility]p steroids d/t increased risk. Rheumatology will need to prescribe in the future. A&P: Continue on Lancaster 7.5-325mg tablet daily from pain management. Continue to see Dr. Coburn, Pain Management and Dressing Room Attendant - does have both appointments scheduled for next week. Assessment & Plan (06/03/2023 1:21 PM SALES WAREHOUSE DRIVER): HPI: Condition is stable. A&P: Discussed/ordered labs, encouraged healthy lifestyle with at least 150 minutes of exercise per week. Continue on Lancaster 7.5-325mg tablet daily from pain management. Apt [...] 08/25/2022 Assessment & Plan (06/08/2024 4:28 PM SALES WAREHOUSE DRIVER): HPI: Condition is not at/near goal. A&P: Discussed/ordered labs. Recommend Ensure 2-3 times daily in addition to meals. Cervical spondylosis without myelopathy 01/03/20 Assessment & Plan (04/18/2022 10:15 AM SALES WAREHOUSE DRIVER): Chronic, persistent Continue to follow with pain management Myalgia 01/02/2022 Ventral hernia without obstruction or gangrene 1 06/05/2020 Assessment & Plan (04/18/2022 10:23 AM SALES WAREHOUSE DRIVER): Chronic Consider referral to general surgery Assessment & Plan (04/05/2021 5:48 PM SALES WAREHOUSE DRIVER): Will consider surgical evaluation pending her GI workup Primary osteoarthritis of left knee 10/08/2019 Assessment & Plan (04/18/2022 10:22 AM SALES WAREHOUSE DRIVER): Chronic, on supportive care Update me if her symptoms change or worsen Atherosclerosis of [place] of left lower extremity with [...] duplex. Assessment & Plan (06/08/2024 1:03 PM SALES WAREHOUSE DRIVER): HPI: Condition is stable. S/P left external [...] duplex. Assessment & Plan (04/18/2022 10:15 AM SALES WAREHOUSE DRIVER): Chronic,persistent Continue to follow with vascular Continue aspirin, plavix, cholesterol control/BP control Update me with any changes Assessment & Plan (07/05/2021 1:36 PM SALES WAREHOUSE DRIVER): Status post left iliac stenting with external [...] concerns Assessment & Plan (06/21/2020 5:21 PM SALES WAREHOUSE DRIVER): Continues to do very well; stent and [...] 12/09/2018 Assessment & Plan (04/18/2022 10:22 AM SALES WAREHOUSE DRIVER): Chronic Continue supportive care Assessment & Plan [...] Plan Services (PPPS): Opioid Use: No Immunization: [id number]: Not Applicable. [id number]: Not Applicable. PCV20: UTD - Done on [...] Annually Assessment & Plan (04/18/2022 10:14 AM SALES WAREHOUSE DRIVER): Work on healthy changes-healthy diet and exercise [...] 12/09/2018 Assessment & Plan (04/18/2022 10:20 AM SALES WAREHOUSE DRIVER): Chronic Following with opthalmology Assessment & Plan (01/04/2021 3:15 PM CDT): Continue to follow with opthalmology Assessment & Plan (11/20/2019 10:04 AM CDT): Continue to follow with opthalmology Assessment & Plan (12/09/2018 5:31 PM CDT): Continue to follow with her specialist Hearing loss 12/09/2018 Assessment & Plan (04/18/2022 10:17 AM SALES WAREHOUSE DRIVER): Chronic, stable Wearing hearing aids Assessment & [...] her Assessment & Plan (04/18/2022 10:14 AM SALES WAREHOUSE DRIVER): Stable Continue to follow with opthalmology Assessment & Plan (01/04/2021 3:02 PM CDT): Continue to follow with opthalmology Osteoarthritis of lumbar spine 09/28/2016 Assessment & Plan (04/18/2022 10:20 AM SALES WAREHOUSE DRIVER): Chronic Continue to follow with pain management Assessment & Plan (01/04/2021 3:16 PM CDT): Continue supportive care Continue norco as needed Update me if her symptoms change or worsen Call for questions or concerns Chronic pain 07/24/2016 Assessment & Plan (04/18/2022 10:16 AM SALES WAREHOUSE DRIVER): Chronic, persistent Continue to follow with pain [...] questions Assessment & Plan (04/05/2021 5:47 PM SALES WAREHOUSE DRIVER): Continue hydrocodone at her current dose If [...] concerns Assessment & Plan (06/16/2019 11:10 AM SALES WAREHOUSE DRIVER): Stable Continue current regimen Assessment & Plan (12/09/2018 5:28 PM CDT): Continue current regimen for pain control Continue supportive modalities History of breast cancer 07/24/2016 Assessment & Plan (04/18/2022 10:18 AM SALES WAREHOUSE DRIVER): Mammogram ordered Assessment & Plan (01/04/2021 3:07 PM CDT): Mammogram ordered Assessment & Plan (03/31/2020 1:13 PM SALES WAREHOUSE DRIVER): Off raloxifene Assessment & Plan (11/20/2019 10:04 [...] lisinopril Assessment & Plan (06/08/2024 1:04 PM SALES WAREHOUSE DRIVER): HPI: Condition is stable. A&P: Discussed/ordered labs. [...] lisinopril Assessment & Plan (06/03/2023 1:13 PM SALES WAREHOUSE DRIVER): HPI: Condition is stable. A&P: Discussed/ordered labs, encouraged healthy lifestyle with at least 150 minutes of exercise per week. Continue on lisinopril 20 mg tablet daily. Assessment & Plan (12/21/2022 1:47 PM CDT): Chronic, at goal/stable Continue lisinopril Continue to follow with cardiology Assessment & Plan (07/29/2022 4:30 PM SALES WAREHOUSE DRIVER): Hypertension chronic and at goal. Continue medical therapy. Assessment & Plan (04/18/2022 10:19 AM SALES WAREHOUSE DRIVER): Chronic, stable/at goal Continue current regimen Assessment & Plan (03/05/2022 10:40 AM CDT): Chronic, stable Continue current regimen Continue healthy changes Assessment & Plan (07/05/2021 1:36 PM SALES WAREHOUSE DRIVER): Hypertension chronic and controlled. Continue current medical therapy. Assessment & Plan (01/04/2021 3:14 PM CDT): Blood pressure fair Continue current regimen Continue healthy changes for her heart Update me with any changes Call for questions or concerns Assessment & Plan (06/21/2020 5:20 PM SALES WAREHOUSE DRIVER): Blood pressure controlled. Cont current medical therapy. Assessment & Plan (11/20/2019 9:58 AM CDT): Blood pressure at goal Continue current regimen Assessment & Plan (10/08/2019 3:54 PM CDT): Impression: Stable hypertension. Plan: Continue current antihypertensive regimen as directed by PCP Assessment & Plan (06/16/2019 11:09 AM SALES WAREHOUSE DRIVER): Stable Continue current regimen Continue healthy changes Call for questions or concerns Assessment & Plan (04/03/2019 9:31 AM SALES WAREHOUSE DRIVER): Stable BP control with use of medication Plan: FU as per PCP Assessment & Plan (12/09/2018 5:26 PM CDT): Stable on her current regimen Continue current regimen Insomnia 07/24/2016 Assessment & Plan (09/10/2024 11:56 AM CDT): Chronci. Uncontrolled. Start Remeron 15mg QHS. Consider going up to 30mg in a week and 45 mg in two weeks. Assessment & Plan (06/08/2024 4:30 PM SALES WAREHOUSE DRIVER): HPI: Condition is stable. A&P: Continue Trazadone [...] sleep. Assessment & Plan (06/03/2023 1:15 PM SALES WAREHOUSE DRIVER): HPI: Condition is not at/near goal. Patient [...] sleep. Assessment & Plan (04/18/2022 10:19 AM SALES WAREHOUSE DRIVER): Chronic Improved with sonata Continue for now- encouraged being safe with her medication Assessment & Plan (03/05/2022 10:38 AM CDT): Chronic, currently uncontrolled Will start sonata Reviewed safety concerns Will need f/u in 6 months Update me with how she is doing in 1 month Call for questions Assessment & Plan (05/03/2021 4:07 PM SALES WAREHOUSE DRIVER): Stop sonmari given higher doses of pain medication Will start trazodone I have encouraged her to be cautious with it Reviewed sleep hygiene Update me in 4 weeks Call for questions or concerns Assessment & Plan (04/05/2021 5:48 PM SALES WAREHOUSE DRIVER): We may need to adjust her regimen [...] 07/24/2016 Assessment & Plan (04/18/2022 10:16 AM SALES WAREHOUSE DRIVER): Chronic, persistent Continue to follow with pain [...] results Assessment & Plan (05/03/2021 4:06 PM SALES WAREHOUSE DRIVER): Improved with norco 1-2 tabs every 4-6 [...] concerns Assessment & Plan (03/31/2020 1:15 PM SALES WAREHOUSE DRIVER): Will increase Elavil to 75 mg daily [...] questions Assessment & Plan (06/16/2019 11:09 AM SALES WAREHOUSE DRIVER): Stable Continue current regimen Continue healthy changes [...] 07/24/2016 Assessment & Plan (06/08/2024 4:27 PM SALES WAREHOUSE DRIVER): HPI: Condition is stable. Last DEXA 03/02/2024. [...] weekly. Assessment & Plan (06/03/2023 1:20 PM SALES WAREHOUSE DRIVER): HPI: Condition is stable. A&P: Discussed/ordered labs, [...] osteoporosis. Assessment & Plan (04/18/2022 10:21 AM SALES WAREHOUSE DRIVER): Chronic Encouraged vitamin d, calcium rich diet Gentle activity Reviewed medication- declined Assessment & Plan (01/04/2021 3:16 PM CDT): Will check bone density Assessment & Plan (03/31/2020 1:14 PM SALES WAREHOUSE DRIVER): Continue calcium and vitamin d We discussed medications like fosamax- declined Continue to work on healthy changes Hyperlipidemia 02/02/2016 Assessment & Plan (10/09/2024 12:17 PM CDT): Impression: Chronic stable Plan: Continue Lipitor Assessment & Plan (06/08/2024 1:03 PM SALES WAREHOUSE DRIVER): HPI: Condition is stable. Lab Results Component [...] atorvastatin Assessment & Plan (06/03/2023 1:13 PM SALES WAREHOUSE DRIVER): HPI: Condition is stable. A&P: Discussed/ordered labs, encouraged healthy lifestyle with at least 150 minutes of exercise per week. Continue on aspirin 81 mg tablet daily, clopidogrel 75 mg tablet daily, and atorvastatin 40 mg tablet daily. Assessment & Plan (12/21/2022 1:46 PM CDT): Chronic, stable Continue lipitor Continue to follow with cardiology Call for questions Assessment & Plan (07/29/2022 4:30 PM SALES WAREHOUSE DRIVER): Hyperlipidemia chronic and controlled. Continue Lipitor 40 mg. Assessment & Plan (04/18/2022 10:18 AM SALES WAREHOUSE DRIVER): Chronic, stable Continue lipitor Assessment & Plan (03/05/2022 10:40 AM CDT): Chronic, stable Continue lipitor Labs ordered Assessment & Plan (07/05/2021 1:36 PM SALES WAREHOUSE DRIVER): Hyperlipidemia chronic and controlled. Continue Lipitor. Assessment & Plan (01/04/2021 3:11 PM CDT): We discussed adjusting her regimen- she wants to work on diet first Will recheck in 3-6 months Call for questions or concerns Assessment & Plan (06/21/2020 5:20 PM SALES WAREHOUSE DRIVER): Currently controlled and tolerating statin therapy. Cont lipitor. Assessment & Plan (11/20/2019 9:57 AM CDT): Labs ordered Continue current regimen Assessment & Plan (06/16/2019 11:10 AM SALES WAREHOUSE DRIVER): Stable Continue current regimen Continue healthy changes Assessment & Plan (04/03/2019 9:31 AM SALES WAREHOUSE DRIVER): Stable lipid control use medication. Plan: Further management as per primary care provider. Assessment & Plan (12/09/2018 5:26 PM CDT): Stable on her medication Continue current regimen Ovarian cyst 11/02/2015 Assessment & Plan (04/18/2022 10:21 AM SALES WAREHOUSE DRIVER): Reviewed with the patient- declined f/u testing We reviewed it could be something worrisome like cancer- declined again Assessment & Plan (04/05/2021 5:48 PM SALES WAREHOUSE DRIVER): I reviewed the patient rechecking a pelvic [...] Patient did not follow up with her car salesperson Patient declined doing an ultrasound or any further evaluation Review there is a risk to could be something more serious like cancer, patient declined to following up or doing any further testing History of rheumatic fever 11/02/2015 Assessment & Plan (04/18/2022 10:18 AM SALES WAREHOUSE DRIVER): asymptomatic Assessment & Plan (01/04/2021 3:17 PM [...] 09/10/2024 Assessment & Plan (04/18/2022 10:18 AM SALES WAREHOUSE DRIVER): Lab re-ordered Assessment & Plan (01/04/2021 5:55 [...] cardiology Assessment & Plan (04/18/2022 10:22 AM SALES WAREHOUSE DRIVER): Chronic Continue to follow with vascular Assessment [...] 09/10/2024 Assessment & Plan (07/29/2022 4:30 PM SALES WAREHOUSE DRIVER): Patient continues to do well and remains asymptomatic with no recurrence. Will continue 6 month duplex surveillance left lower extremity and GREG. Continue exercise and risk factor modification. Assessment & Plan (04/18/2022 10:16 AM SALES WAREHOUSE DRIVER): Chronic Continue to follow with vascular surgery Assessment & Plan (01/04/2021 3:06 PM CDT): Continue to follow with vascular surgery Assessment & Plan (11/20/2019 9:59 AM CDT): Continue to follow with vascular Assessment & Plan (04/03/2019 9:21 AM SALES WAREHOUSE DRIVER): Patient continues to do well status post [...] surveillance. Inflammatory spondylopathy o f cervical region ([facility]) 11/02/2015 01/04/2021 Encounters Date Type Department Care Team Description 02/13/2025 8:30 AM CDT Office Visit [facility] at [address] [phone] Ginette Infante NP Dehydration (Primary Dx); Nausea and vomiting, unspecified vomiting type; Functional diarrhea; Weakness 02/12/2025 Telephone [facility] at [address] [phone] Adelso Alexander MD 01/18/2025 2:23 PM CDT - 01/18/2025 11:59 PM CDT Hospital Encounter [facility] [address] [address] Homero Coburn NP Chronic pain syndrome (Primary Dx); Neck pain; Cervical spondylosis without myelopathy; Myalgia; Polymyalgia rheumatica Discharge Disposition: Discharge to home or self care 01/14/2025 Telephone [facility] at [address] [phone] Adelso Alexander MD Symptom Based Call 12/29/2024 2:51 PM CDT - 12/29/2024 11:59 PM CDT [facility] [place] [address] [place] [id number] Weight loss Discharge Disposition: Discharge to home or self care 12/16/2024 Results Follow-Up [facility] at [address] [phone] Adelso Alexander MD TSH, Iron profile w/ IBC, Erythrocyte sedimentation rate, Additional followed-up results: 3 12/15/2024 11:15 AM CDT Office Visit [facility] at [address] [phone] Adelso Alexander MD Medicare annual wellness visit, subsequent (Primary Dx); Mild cognitive impairment; Vitamin D deficiency 11/18/2024 11:25 AM CDT - 11/18/2024 11:59 PM CDT Hospital Encounter [facility] [address] [address] Homero Coburn NP Cervical spondylosis without myelopathy (Primary Dx); Chronic pain syndrome; Degeneration of intervertebral disc of cervical region; Bilateral carpal tunnel syndrome Discharge Disposition: Discharge to home or self care 11/17/2024 10:15 AM CDT Office Visit [facility] [address] [facility] [address] [phone] Chava Liang MD Mixed hyperlipidemia (Primary Dx); Essential hypertension, benign; Palpitations from Last 3 Months Immunizations Immunization Administration Dates Next Due Influenza, Quadrivalent, Hig h Dose, Preservative Free, Intrr 03/26/2023,03/05/2022,05/03/2021,03/31,02/24/2019,04/09/2018,06/14/2016 Influenza, Trivalent, High D ose, Split, Preservative Free, Intramuscular 03/24/2024,02/24/2019,04/09/2018,06/14 Influenza, Trivalent, IM (MDV) 02/24/2014,2012 Influenza, Unspecified 03/26/2023,2021,05/03/2021,03/31 Pfizer SARS-CoV-2 Monovalent Vaccination (12+ Yrs) PURPLE 08/12/2020,07/23/2020 Pneumococcal Conjugate Pcv20 06/03/2023 Pneumococcal Polysaccharide PPV23 05/27/2014,12/2012 Tdap 11/20/2019 Surgical History Surgery Date Site/Laterality Comments SECTION PARTIAL HYSTERECTOMY POPLITEAL ARTERY ANGIOPLASTY COLONOSCOPY BREAST BIOPSY age 36 Left BREAST LUMPECTOMY 05/27/1988 - 05/26/1989 Left HYSTERECTOMY ILIAC ARTERY STENT 12/05/2012 Left Aortogram. LLE angiogram. EMERGENCY DEPT TECH LT TRESSA & EIA & com-fem arteries. Stenting LT TRESSA, EIA. EMERGENCY DEPT TECH RT EIA. ANGIOPLASTY 05/18/2013 Left Aortogram w/ LLE angiogram. EMERGENCY DEPT TECH LT com-fem artery. FEMORAL ENDARTERECTOMY 09/08/2013 Left LT fem endar of the LT EIA, com-fem, profunda-fem, & SFA w/ PA. ANGIOPLASTY / STENTING ILIAC 12/15/2013 Left Aortogram. angiogram LT EIA & SFA. EMERGENCY DEPT TECH & stenting LT EIA & com-fem. ILIAC [...] Polymyalgia rheumatica SBO (small bowel obstruction ) (HCC) 08/20/2022 Family History Medical History Relation Name [...] diabetes Sister 5 Sanam Diabetes Son Mahesh Stokes Relation Name Status Comments Father Celso Mother [...] week 09/07/2022 How often do you attend [facility] or mormonism services? More than 4 times per year 09/07/2022 Do you belong to any clubs o r organizations such as episcopalian groups, unions, fraternal or athletic groups, or [...] file Legal Sex Female 10:32 AM SALES WAREHOUSE DRIVER Gender Identity Female 10/08/2019 6:23 AM CDT [...] Vaccine (1 of 2) 1996 Covid-19 Vaccine (2024-06 6 season) 2025 05/10/2022, 01/22/2022, 03/29/2021, Additional history exists Influenza Vaccine (#1) 2025 , 03/26/2023, 03/26/2023, Additional history exists Depression Screening 12/15/2025 12/15/2024, 03/24/2024, 08/05/2023, Additional history exists Fall Risk Assessment 12/15/2025 12/15/2024, 11/18/2024, 03/24/2024, Additional history exists Well Visit 65+ 12/15/2025 12/15/2024, 07/25, 04/18/2022, Additional history exists Osteoporosis Screening-Bone Density [...] HEPATITIS C ANTIBODY Routine 06/12/2019 8:38 AM SALES WAREHOUSE DRIVER Need for hepatitis C screening test from [...] Luis Troncoso M.D. AT T: Report ID: [id number] Reading Location: [id number] Procedure Note Luis Troncoso MD - 01/13/2025 [...] Luis Troncoso M.D. AT T: Report ID: [id number] Reading Location: [place] [address] Ashley Lizama MD IMG CT PROCEDURES Final R esult * (ABNORMAL) Iron profile w/ IBC (12/15/2024 2:10 PM CDT) Pathologist [facility] Iron 51 45 - 160 mcg/dL [facility] TIBC 340 250 - 450 mcg/dL (calc) [facility] Iron saturation 15(L) 16 - 45 % (calc) [facility] Blood 12/15/2024 2:10 PM CDT 12/15/2024 2:10 PM CDT Narrative [facility] - 12/16/2024 9:30 AM CDT FASTING:NO FASTING: NO Adelso Alexander MD LAB BLOOD ORDERABLES Final Resul t [facility] [address] [place] [address] * Vitamin D 25 hydroxy (12/15/2024 2:10 PM CDT) Pathologist [facility] Vitamin D 25-OH 54 30 - 100 [...] D, (D2,D3), LC/MS/MS is recommended: order code 39945 (patients >2yrs). See Note 1 Note 1 For additional information, please refer to http://education.en-Gauge/faq/GHX419 (This link is being provided for informational/ educational purposes only.) Blood 12/15/2024 2:10 PM CDT 12/15/2024 2:10 PM CDT Narrative [facility] - 12/16/2024 9:30 AM CDT FASTING:NO FASTING: NO Adelso Alexander MD LAB BLOOD ORDERABLES Final Resul t Performing Organization Address [facility] Co de Phone Number [facility] [address] [place] [address] * Erythrocyte sedimentation rate (12/15/2024 2:10 PM CDT) Erythrocyte sedimentation rate 11 < OR = 30 mm/h [facility] Blood 12/15/2024 2:10 PM CDT 12/15/2024 2:10 PM CDT Narrative [facility] - 12/16/2024 9:30 AM CDT FASTING:NO FASTING: NO Adelso Alexander MD LAB BLOOD ORDERABLES Final Resul t Performing Organization Address [facility] de Phone Number [facility] [address] [place] [address] * CRP (acute phase) (12/15/2024 2:10 PM CDT) C-RP <3.0 <8.0 mg/L [facility] Blood 12/15/2024 2:10 PM CDT 12/15/2024 2:10 PM CDT Narrative [facility] - 12/16/2024 9:30 AM CDT FASTING:NO FASTING: NO Adelso Alexander MD LAB BLOOD ORDERABLES Final Resul t Performing Organization Address [facility] de Phone Number [facility] [address] [place] [address] * TSH (12/15/2024 2:10 PM CDT) Pathologist [facility] TSH 1.72 0.40 - 4.50 mIU/L [facility] Blood 12/15/2024 2:10 PM CDT 12/15/2024 2:10 PM CDT Narrative [facility] - 12/16/2024 9:30 AM CDT FASTING:NO FASTING: NO Adelso Alexander MD LAB BLOOD ORDERABLES Final Resul t Performing Organization Address [facility] de Phone Number [facility] [address] [place] [address] * Vitamin B12 (12/15/2024 2:10 PM CDT) Pathologist [facility] Vitamin B12 361 200 - 1,100 pg/mL [facility] Comment: Please Note: Although the reference [...] ORDERABLES Final Resul t Performing Organization Address [facility] Co de Phone Number EMILY [facility] [address] [place] [address] * Colonoscopy (09/23/2024 4:48 PM CDT) Anatomical [...] age 40, based on guidelines of the [employer] (ACR Practice Parameter for the Performance of Screening and Diagnostic Mammography) and [employer]. For women [...] Sister. COMPARISONS: 06/28/2022 Screening Mammogram Bilateral W Yamil 05/04/2021 Screening Mammogram Bilateral W Yamil 01/15/2020 Breast Imaging Screening Outside Reference 09/17/2018 Screening Mammogram Bilateral W Yamil BREAST TISSUE: The breasts are heterogeneously dense, which may obscure small masses. FINDINGS: There are stable postoperative changes in the left breast. There are benign calcifications in both breasts. There is no new suspicious finding in either breast on mammogram. us Mignon Bingham NP IMG MAMMO PROCEDURES Final Re sult * Dexa Axial Skeleton Bone Density 1 or 2 Site (03/02/2024 3:14 PM CDT) Anatomical Region Laterality Modality Body N/A Mammography 03/02/2024 7:01 PM CDT Narrative 03/02/2024 7:02 PM CDT EXAM DESCRIPTION: DEXA AXIAL SKELETON BONE DENSITY 1 OR MORE SITES REASON FOR STUDY: 78 y/o year old F with given history of: post-menopausal osteoporosis prevention Dock Coordinator/Model: PanTheryx A (S/N [id number]) CLINICAL INFORMATION: Current height: 16 inches Maximum [...] Benton Dumas M.D. MF: ROBER Report ID: [id number] Reading Location: [id number] Procedure Note Benton Dumas MD - 03/02/2024 EXAM DESCRIPTION: DEXA AXIAL SKELETON BONE DENSITY 1 OR MORE SITES REASON FOR STUDY: 78 y/o year old F with given history of: post-menopausal osteoporosis prevention Dock Coordinator/Model: PanTheryx A (S/N [id number]) CLINICAL INFORMATION: Current height: 16 inches Maximum [...] Benton Dumas M.D. MF: ROBER Report ID: [id number] Reading Location: [place] [address] us Mignon Bingham NP IMG DXA PROCEDURES Final Resu lt * Hepatitis C antibody (06/12/2019 8:38 AM SALES WAREHOUSE DRIVER) Hep C Ab NON-REACT BRETT NON-REACT BRETT x.ai - [place] SIGNAL TO CUT-OFF 0.00 <1.00 [facility] - [place] Comment: HCV antibody was non-reactive. There is no laboratory evidence of HCV infection. In most cases, no further action is required. However, if recent HCV exposure is suspected, a test for HCV RNA (test code 77580) is suggested. For additional information please refer to http://education.[employer]faq/RDZ96p3 (This link is being provided for informational/ educational purposes only.) Blood specimen (specimen) 06/12/2019 8:38 AM SALES WAREHOUSE DRIVER 06/12/2019 8:39 AM SALES WAREHOUSE DRIVER Narrative [facility] - 06/13/2019 6:31 PM SALES WAREHOUSE DRIVER FASTING:YES FASTING: YES Resulting Agency Comment Performing Organization Information: Site ID: [place] Name: [facility] Address: [address] [address] Director: Brian Lyn D.O., MPH us Mercedes Dennis MD LAB MICROBIOLOGY - GENERAL ORDERABLES Final Result EMILY DIAZ [facility] - [place] Ernandez from Last 3 Months or Most Recently Relevant to Health Maintenance Insurance [employer] Member Subscriber Plan / Payer (Ef fective 2012-Present) Name:Ashley Stokes Relation to Subscriber:Self Name:Ashley Stokes Payer ID:[id number] (NAIC) Type:MEDICARE RISK OTHER Address: [address] [place] [id number] [facility] Advance Directives For more information, please contact: [phone] * Full Code (Latest Code Status on File) Date Activated Date Inactivated Comments 08/20/2022 9:16 PM 08/27/2022 4:33 PM Care Teams Crematory Attendant Relationship Specialty Start Date End Date Adelso Alexander MD [address] [facility] [address] [place] [address] PCP - General Family Medicine 09/10/24 Casey Baig MD [address] [facility] [address] [facility] [address] [place] [address] Surgeon Vascular Surgery 01/01/22 Ashley Lizama MD [address] [facility] [address] [place] [address] Consulting Physician Gastroenterology 06/03/23 Felipa Davis MD [address] [address] Referring Physician Pneumatic Tube Repairer 06/03/23 [place] [address] [address] [place] [address] Nurse Practitioner Pain Management 06/03/23
--- OUTSIDE RECORDS SUMMARY | 2025-02-13 13:26 | XMS_ITS | Encounter Summary ---
Author Organization [facility] Healthcare Address [address] [place] [address] Care Team Providers Care Boat Loader Name Role Phone Casey Baig MD Unavailable [phone] Mignon Bingham NP Primary Care Provider [phone] Ashley Lizama MD Unavailable [phone] Felipa Davis MD Unavailable [phone] Homero Coburn NP Unavailable [phone] Adelso Alexander MD Primary Care Provider [phone] Reason for Referral * MRI/CAT/PET Scan (Routine) - Closed Specialty Diagnoses / Procedures Referred By Contac t Referred To Contact Radiology Diagnoses Weight loss Procedures CT ABDOMEN PELVIS W CONTRAST Ashley Lizama MD [address] [facility] [address] [place] [address] Phone: tel: fax: [facility] [address] [place] [phone] Referral ID Status Reason Start Date Expiration Date Visits Re quested Visits Authorized [id number] Closed 08/03/2024 09/02/2025 1 1 Encounter Details Date Type Department Care Team (Late st Contact Info) Description 08/03/2024 Community Orders [facility] EpicCare Link Ashley Lizama MD [address] [place] [address] Weight loss (Primary Dx) Social History Tobacco [...] week 09/07/2022 How often do you attend [facility] or hoahaoism services? More than 4 times per year 09/07/2022 Do you belong to any clubs o r organizations such as cheondoism groups, unions, fraternal or athletic groups, or [...] on file Legal Sex Female 10:32 AM HAND TRIMMER Gender Identity Female 10/08/2019 6:23 AM CDT [...] Luis Troncoso M.D. AT T: Report ID: [id number] Reading Location: [id number] Procedure Note Luis Troncoso MD - 01/13/2025 [...] Luis Troncoso M.D. AT T: Report ID: [id number] Reading Location: [place] [address] Ashley Lizama MD IMG CT PROCEDURES Final R esult documented in this encounter Visit Diagnoses Diagnosis Weight loss- Primary Loss of weight Weight loss Loss of weight documented in this encounter Care Teams Boat Loader Relationship Specialty Start Date End Date Mignon Bingham NP [address] [facility] [address] [place] [address] PCP - General Family Medicine 04/29/23 09/09/24 Adelso Alexander MD [address] [facility] [address] [place] [address] PCP - General Family Medicine 09/10/24 Casey Baig MD [address] [facility] [address] [place] [address] Surgeon Vascular Surgery 01/01/22 Ashley Lizama MD [address] [facility] [address] [place] [address] Consulting Physician Gastroenterology 06/03/23 Felipa Davis MD [address] [facility] [place] [address] Referring Physician Mortgage Loan Interviewer 06/03/23 [place] [address] [place] [address] Nurse Practitioner Pain Management 06/03/23 documented as of this encounter
--- OUTSIDE RECORDS SUMMARY | 2025-02-13 13:26 | XMS_ITS | Encounter Summary ---
Author Organization [facility] Facility Care Team Providers Care Interactive Project Manager Name Role Phone Casey Baig MD Unavailable [phone] Mercedes Sam RN Unavailable [phone] Mignon Bingham NP Primary Care Provider [phone] Ashley Lizama MD Unavailable [phone] Felipa Davis MD Unavailable [phone] Homero Coburn NP Unavailable [phone] Adelso Alexander MD Primary Care Provider [phone] Encounter Details Date Type Department Care Team (Latest Contact Info) Description 07/24/2017 Orders Only [facility] CLINCONV ProviderLeslie MD [address] [place] [address] Social History Tobacco Use Types Packs/Day Years Used Date Smoking Tobacco: Never Assessed Comments Unknown Sex and Gender Information Value Date Recorded Sex Assigned at Not on file Legal Sex Female 10:32 AM FOREST FIRE OFFICER Gender Identity Female 10/08/2019 6:23 AM CDT Sexual Orientation Straight 10/08/2019 6: 23 AM CDT documented as of this encounter Plan of Treatment Not on file documented as of this encounter Procedures Procedure Name Priority Date/Time Associated Diagnosis Comments COLONOSCOPY - SCAN 07/31/2017 12 :00 AM FOREST FIRE OFFICER documented in this encounter Results * COLONOSCOPY - SCAN (07/31/2017 12:00 AM FOREST FIRE OFFICER) Narrative 07/31/2017 12:00 AM FOREST FIRE OFFICER Ordered by an unspecified provider. us Historical Provider Final Res ult documented in this encounter Visit Diagnoses Not on filedocumented in this encounter Care Teams Interactive Project Manager Relationship Specialty Start Date End Date Mignon Bingham NP [address] [facility] [address] [place] [address] PCP - General Family Medicine 04/29/23 09/09/24 Adelso Alexander MD [address] [facility] [address] [place] [address] PCP - General Family Medicine 09/10/24 Casey Baig MD [address] [facility] [address] [facility] [address] [place] [address] Surgeon Vascular Surgery 01/01/22 Mercedes Sam, RN [address] [place] [address] [place] [address] Lean Facilitator 08/28/22 09/25/22 Ashley Lizama MD [address] [address] Consulting Physician Gastroenterology 06/03/23 Felipa Davis MD [address] [address] Referring Physician Solvent Mixer 06/03/23 [place] [address] [address] [facility] [address] [place] [address] Nurse Practitioner Pain Management 06/03/23 documented as of this encounter
--- OUTSIDE RECORDS SUMMARY | 2025-02-13 13:26 | XMS_ITS | Encounter Summary ---
Author Organization [facility] Facility Care Team Providers Care Cocoa Roaster Name Role Phone Casey Baig MD Unavailable [phone] Mercedes Sam RN Unavailable [phone] Mignon Bingham NP Primary Care Provider [phone] Ashley Lizama MD Unavailable [phone] Felipa Davis MD Unavailable [phone] Homero Coburn NP Unavailable [phone] Adelso Alexander MD Primary Care Provider [phone] Encounter Details Date Type Department Care Team (Latest Contact Info) Description 09/20/2017 Orders Only [facility] CLINCONV ProviderLeslie MD [address] [place] [address] Social History Tobacco Use Types Packs/Day Years Used Date Smoking Tobacco: Never Assessed Comments Unknown Sex and Gender Information Value Date Recorded Sex Assigned at Not on file Legal Sex Female 10:32 AM CAR WRECKER Gender Identity Female 10/08/2019 6:23 AM CDT [...] on filedocumented in this encounter Care Teams Cocoa Roaster Relationship Specialty Start Date End Date Mignon Bingham NP [address] [facility] [address] [place] [address] PCP - General Family Medicine 04/29/23 09/09/24 Adelso Alexander MD [address] [facility] [address] [place] [address] PCP - General Family Medicine 09/10/24 Casey Baig MD [address] [facility] [address] [facility] [address] [place] [address] Surgeon Vascular Surgery 01/01/22 Mercedes Sam RN [address] [place] [address] [place] [address] Manufacturer'S Representative 08/28/22 09/25/22 Ashley Lizama MD [address] [facility] [address] [place] [address] Consulting Physician Gastroenterology 06/03/23 Felipa Davis MD [address] [address] Referring Physician Approver 06/03/23 [place] [address] [address] [facility] [[email or web address] [address] [place] [address] Nurse Practitioner Pain Management 06/03/23 documented as of this encounter
--- OUTSIDE RECORDS SUMMARY | 2025-02-13 13:26 | XMS_ITS | Clinical Summary ---
Author Organization [facility] Address [address] [facility] [place] [address] Care Team Providers Care Healthcare Prof Name Role Phone Adelso Alexander MD Primary Care Provider [phone] Source Comments [facility],non-owned Affiliates and Associated Physician Practices is amultiple site organization consisting of ambulatory clinics and hospital sitesin [place], [place], [place] and [place]. This disclosure is being madepursuant to the Care Everywhere program and may not contain all information available regarding this patient. Last updated 18.[facility] Allergies Active Allergy Reactions Criticality Noted Date [...] mouth once daily 06/08/2024 Active HYDROcodone-layo taminophen ([place]) 7.5-325 MG tablet Take 1 (one) tablet [...] on file Legal Sex Female 5:49 AM EVENT SERVICES MANAGER Gender Identity Not on file Sexual Orientation [...] Height 152.4 cm (5') 05/22/2024 10:24 AM EVENT SERVICES MANAGER Body Mass Index 16.83 05/22/2024 10:24 AM EVENT SERVICES MANAGER Plan of Treatment Health Maintenance Due Date [...] SCREEN ACUTE ([facility]) Routine 05/14/2023 12:07 PM EVENT SERVICES MANAGER PMR (polymyalgia rheumatica) Vitamin D deficiency [place] Postmenopausal osteoporosis from Last 3 Months or Most Recently Relevant to Health Maintenance Results * HEPATITIS SCREEN ACUTE ([facility]) (05/14/2023 12:07 PM EVENT SERVICES MANAGER) Hepatitis A Virus Antibody IgM Non Reactive [...] BLOOD SPECIMEN / Unknown 05/14/2023 12:07 PM EVENT SERVICES MANAGER 05/14/2023 Narrative Resulting Agency Comment Lab Testing performed at: [facility] [address] [place] [address] Dr [place] [id number] us Felipa Davis MD LAB - CHEMISTRY ORDERABLES Maureen arias Result [facility] INSURANCE BILL [address] [place] [address] from Last 3 Months or Most Recently Relevant to Health Maintenance Insurance [facility] MEDICARE Care Teams Healthcare Prof Relationship Specialty Start Date End Date Adelso Alexander MD [address] [facility] [address] [place] [phone] PCP - General Family Medicine 09/26/23
--- OUTSIDE RECORDS SUMMARY | 2025-02-13 13:26 | XMS_ITS | Encounter Summary ---
Author Organization [facility] Healthcare Address [address] [place] [address] Care Team Providers Care Baker Second Name Role Phone Casey Baig MD Unavailable [phone] Ashley Lizama MD Unavailable [phone] Felipa Davis MD Unavailable [phone] Homero Coburn NP Unavailable [phone] Adelso Alexander MD Primary Care Provider [phone] Encounter Details Date Type Department Care Team (Late st Contact Info) Description 12/16/2024 Results Follow-Up [facility] Medical Group Family Medicine at [address] [place] [address] Adelso Alexander MD [address] [place] [address] [address] [place] [address] TSH, Iron profile w/ IBC, Erythrocyte sedimentation [...] How often do you attend chur or faith services? More than 4 times per year 09/07/2022 Do you belong to any clubs o r organizations such as hoahaoism groups, unions, fraternal or athletic groups, or [...] on file Legal Sex Female 10:32 AM CORE STICKER Gender Identity Female 10/08/2019 6:23 AM CDT Sexual Orientation Straight 10/08/2019 6: 23 AM CDT documented as of this encounter Plan of Treatment Not on file documented as of this encounter Visit Diagnoses Not on filedocumented in this encounter Care Teams Baker Second Relationship Specialty Start Date End Date Adelso Alexander MD [address] [facility] [address] [place] [address] PCP - General Family Medicine 09/10/24 Casey Baig MD [address] [facility] [address] [facility] [address] [place] [address] Surgeon Vascular Surgery 01/01/22 Ashley Lizama MD [address] [facility] [address] [place] [address] Consulting Physician Gastroenterology 06/03/23 Felipa Davis MD [address] [facility] [address] [place] [address] Referring Physician Regional Sales Trainer 06/03/23 [place] [address] [address] [facility] [address] [place] [address] Nurse Practitioner Pain Management 06/03/23 documented as of this encounter
--- OUTSIDE RECORDS SUMMARY | 2025-02-13 13:26 | XMS_ITS | Encounter Summary ---
Author Organization [facility] Facility Care Team Providers Care Associate Faculty Name Role Phone Casey Baig MD Unavailable [phone] Mercedes Sam RN Unavailable [phone] Mignon Bingham NP Primary Care Provider [phone] Ashley Lizama MD Unavailable [phone] Felipa Davis MD Unavailable [phone] Homero Coburn NP Unavailable [phone] Adelso Alexander MD Primary Care Provider [phone] Encounter Details Date Type Department Care Team (Latest Contact Info) Description 04/11/2017 Orders Only [facility] CLINCONV Provider, MD Leslie [address] [place] [address] Social History Tobacco Use Types Packs/Day Years Used Date Smoking Tobacco: Never Assessed Comments Unknown Sex and Gender Information Value Date Recorded Sex Assigned at Not on file Legal Sex Female 10:32 AM MAJOR ASSEMBLY LINEMAN Gender Identity Female 10/08/2019 6:23 AM CDT Sexual Orientation Straight 10/08/2019 6: 23 AM CDT documented as of this encounter Plan of Treatment Not on file documented as of this encounter Procedures Procedure Name Priority Date/Time Associated Diagnosis Comments SCAN - LABS 06/04/2017 12:00 AM MAJOR ASSEMBLY LINEMAN documented in this encounter Results * SCAN - LABS (06/04/2017 12:00 AM MAJOR ASSEMBLY LINEMAN) Narrative 06/04/2017 12:00 AM MAJOR ASSEMBLY LINEMAN Ordered by an unspecified provider. us Historical Provider Final Res ult documented in this encounter Visit Diagnoses Not on filedocumented in this encounter Care Teams Associate Faculty Relationship Specialty Start Date End Date Mignon Bingham NP [address] [facility] [address] [place] [address] PCP - General Family Medicine 04/29/23 09/09/24 Adelso Alexander MD [address] [facility] [address] [place] [address] PCP - General Family Medicine 09/10/24 Casey Baig MD [address] [facility] [address] [facility] [address] [place] [address] Surgeon Vascular Surgery 01/01/22 Mercedes Sam, RN [address] [place] [address] [place] [address] Money Counter 08/28/22 09/25/22 Ashley Lizama MD [address] [address] Consulting Physician Gastroenterology 06/03/23 Felipa Davis MD [address] [address] Referring Physician Digital Account Director 06/03/23 [place] [address] [address] [place] [address] Nurse Practitioner Pain Management 06/03/23 documented as of this encounter
--- NOTE | 2025-02-13 14:04 | ED_ITS ---
HPI - General Adult General Chief complaint: Nausea/Vomiting/Diarrhea Stated complaint: n/v x5 days Time Seen by Provider: 02/13/25 13:17 History of Present Illness HPI narrative: 79-year-old female presents to the emergency department for evaluation for nausea vomiting diarrhea. Symptoms have been ongoing for the last few days. Patient does report generalized weakness. Patient denies any falls or injuries. Patient lives at home on her own and her 2 sons who live locally help take care for. Patient's family was present during the evaluation. Patient denies any specific urinary symptoms. Related Data Allergies Allergy/AdvReac Type Severity Reaction Status Date / Time alendronate sodium (Fosamax) Allergy Unknown bone pain Verified 02/13/25 12:01 codeine Allergy Unknown Unknown Verified 02/13/25 12:01 Penicillins Allergy Unknown Verified 02/13/25 12:01 morphine AdvReac Unknown VOMITING Verified 02/13/25 12:01 Review of Systems 2 Review of Systems: All systems reviewed & are unremarkable except as noted in HPI and below PMFSH Past Medical History Medical History (Updated 02/13/25 @ 16:00 by Kennedy Bojorquez MD) Counseling on health promotion and disease prevention Encounter for medication management Polymyalgia rheumatica Degenerative joint disease of cervical and lumbar spine Social History Social History Smoking status: Unknown if ever smoked Exam 2 Narrative: APPEARANCE: Well appearing, no pain, no distress, well-nourished. HEAD: normocephalic, atraumatic. EYES: PERRLA/EOMI, conjunctivae clear. NOSE: Normal no drainage EARS:TMS clear with good light reflex. THROAT: Pharynx clear, no exudate. NECK: Supple. No adenopathy, no masses. RESPIRATORY: Airway patent, respirations nonlabored. Clear to auscultation bilaterally, no rales, rhonchi, wheezing. CARDIOVASCULAR: Regular rate and rhythm without murmurs rubs or gallops. ABDOMINAL: Soft, nontender, nondistended, normal bowel sounds MUSCULOSKELETAL: Moves all extremities. Strength/ROM intact, No edema, No calf tenderness. NEURO: Alert. Cranial nerves II through XII intact. Good gait. Good coordination SKIN: Warm, dry. Normal Color Course Vital Signs Vital signs: Vital Signs Temperature 97.5 F L 02/13/25 09:08 Pulse Rate 60 02/13/25 09:08 Respiratory Rate 17 02/13/25 09:08 Blood Pressure 141/61 H 02/13/25 09:08 Pulse Oximetry 95 02/13/25 09:08 Oxygen Delivery Room Air 02/13/25 09:08 Temperature 97.5 F L 02/13/25 09:08 Pulse Rate 80 02/13/25 16:48 Respiratory Rate 16 02/13/25 16:48 Blood Pressure 130/74 02/13/25 16:48 Pulse Oximetry 99 02/13/25 16:48 Oxygen Delivery Room Air 02/13/25 09:08 Medical Decision Making MDM Narrative Medical decision making narrative: UA was concerning for infection. Patient was started on Rocephin for underlying urinary tract infection. Patient did feel improved with IV rehydration. Patient is currently afebrile the leukocytosis hemoglobin of 12.5. Patient has no significant abnormalities on her CMP. Patient and family were updated the results of the workup and they do prefer to be discharged home. Patient was 5 is to follow a clear liquid diet for the next few days and patient will be provided Zofran for nausea control. Patient will also be provided antibiotics for the urinary tract infection. All questions concerns were addressed patient was well-appearing at time of discharge. Differential Diagnosis Differential Diagnosis: Pneumonia, COVID, RSV, influenza, UTI, generalized weakness, dehydration, delirium, dementia Vital Signs Vital Signs: Vital Signs Temperature 97.5 F L 02/13/25 09:08 Pulse Rate 60 02/13/25 09:08 Respiratory Rate 17 02/13/25 09:08 Blood Pressure 141/61 H 02/13/25 09:08 Pulse Oximetry 95 02/13/25 09:08 Oxygen Delivery Room Air 02/13/25 09:08 Temperature 97.5 F L 02/13/25 09:08 Pulse Rate 80 02/13/25 16:48 Respiratory Rate 16 02/13/25 16:48 Blood Pressure 130/74 02/13/25 16:48 Pulse Oximetry 99 02/13/25 16:48 Oxygen Delivery Room Air 02/13/25 09:08 Lab Data Lab results reviewed: Yes I reviewed the patient's lab results. 02/13/25 11:55 02/13/25 14:59 Labs: Lab Results 02/13/25 02/13/25 02/13/25 Range/Units 11:55 12:50 14:59 WBC 8.8 (4.5-10.0) K/mm3 RBC 4.21 (4.2-5.4) M/mm3 Hgb 12.5 (12.0-15.0) g/dL Hct 40.4 (37.0-47.0) % MCV 96.0 (80-100) fl MCH 29.7 (26-34) pg MCHC 30.9 L (32-36) g/dl RDW 13.5 (11.5-14.5) % Plt Count 302 (150-375) k/mm3 MPV 10.1 (7.4-10.4) fl Immature Gran % (Auto) 0.5 (0-0.5) % Neut % (Auto) 90.2 H (45.5-73.1) % Lymph % (Auto) 4.4 L (18.3-44.2) % [place] % (Auto) 4.3 (2.6-8.5) % Eos % (Auto) 0.1 (0-4.4) % Baso % (Auto) 0.5 (0.2-1.2) % Lymph # (Auto) 0.39 L (0.9-3.2) K/mm3 [place] # (Auto) 0.4 (0.1-0.6) K/mm3 Eos # (Auto) 0.0 (0-0.3) K/mm3 Baso # (Auto) 0.0 (0.0-0.1) K/mm3 Abs Immat Gran (auto) 0.04 H (0.00-0.031) K/mm3 Absolute Neuts (auto) 7.9 H (1.3-6.7) K/mm3 Absolute Nucleated RBC 0.000 (0.0-0.012) K/mm3 Nucleated RBC % 0.0 (0.0-0.2) % Sodium 136 L (137-145) mmol/L Potassium 4.2 (3.4-5.0) mmol/L Chloride 101 (98-107) mmol/L Carbon Dioxide 29 (22-30) mmol/L Anion Gap 6 (4-12) mmol/L BUN 12 D (7-17) mg/dL Creatinine 0.56 L (0.7-1.0) mg/dL Estim Creat Clear Calc 43 ml/min Estimated GFR > 60 (59 - ) Glucose 87 (65-110) mg/dL Calcium 8.9 (8.4-10.2) mg/dL Total Bilirubin 0.5 (0.2-1.3) mg/dL AST 22 (14-36) U/L ALT 18 (6-35) U/L Alkaline Phosphatase 95 (38-126) U/L Total Protein 6.5 (6.3-8.2) g/dL Albumin 3.8 (3.5-5.1) g/dL Lipase Cancelled Urine Color Yellow (Yellow) Urine Appearance Cloudy H (Clear) Urine pH 5.0 (5.0-9.0) Ur Specific [place] 1.019 (1.001-1.035) Urine Protein 1+ H (Negative) mg/dL Urine Glucose (UA) Negative (Negative) mg/dL Urine Ketones 1+ H (Negative) mg/dL Ur Blood (Man) 2+ H (Negative) Urine Nitrate Positive H (Negative) Urine Bilirubin Negative (Negative) Urine Urobilinogen 0.2 (<2.0) mg/dL Leukocyte Esterase Rfl 3+ H (Negative) NATALYA/UL Urine RBC 0-2 (0-2) /hpf Urine WBC 51-100 H (0-3) /hpf Ur Squamous Epith Cells None seen (Few) /hpf Urine Bacteria 4+ H /hpf Urine Casts 0-2 Discharge Plan Discharge Clinical Impression: Nausea & vomiting, Urinary tract infection Patient Disposition: Home Condition: Stable Instructions: Antibiotic Form, Urinary Tract Infection in Women (DC), Clear Liquid Diet (ED), Acute Nausea and Vomiting (ED) Additional Instructions: Antibiotics for the urinary tract infection as directed until completed. Zofran as needed for nausea control. Clear liquid diet for the next 1-3 days. If you have any worsening symptoms and please call or return to the emergency department. Patient Language: Telugu Prescriptions: New cephalexin 500 mg capsule 500 mg PO Q8H 7 Days Qty: 21 0RF ondansetron 4 mg tablet,disintegrating 4 mg PO Q8H PRN (Reason: nausea and vomiting) Qty: 14 0RF No Action ondansetron 4 mg tablet,disintegrating 4 mg PO Q8H PRN (Reason: nausea and vomiting) Qty: 10 0RF tizanidine 2 mg tablet 2 mg PO TID PRN (Reason: muscle spasticity) Qty: 90 4RF Follow-up/Referrals: UNKNOWN,DOCTOR [Primary Care Provider]
[2025-02-13] MEDS: LACTATED RINGERS 1,000 ML 999 ML IV CONT (14:27)
[2025-02-13] MEDS: cefTRIAXone 1 GM in SODIUM CHLORIDE 0.9% IV 50 ML 100 ML IVPB (14:27)
[2025-02-13 15:25] LABS: Alanine Aminotransferase 18 U/L (6-35); Albumin Level 3.8 g/dL (3.5-5.1); Alkaline Phosphatase 95 U/L (38-126); Anion Gap 6 mmol/L (4-12); Aspartate Amino Transferase 22 U/L (14-36); Bilirubin,Total 0.5 mg/dL (0.2-1.3); Blood Urea Nitrogen 12 mg/dL (7-17); Calcium 8.9 mg/dL (8.4-10.2); Carbon Dioxide 29 mmol/L (22-30); Chloride 101 mmol/L (98-107); Estimated CRCL calculation 43 ml/min; Estimated Glomerular Filt Rate > 60; Glucose 87 mg/dL (65-110); Potassium 4.2 mmol/L (3.4-5.0); Sodium 136 mmol/L (137-145); Total Protein 6.5 g/dL (6.3-8.2)
== END 2025-02-13 16:49 | disposition home or self-care (01) ==
PROVIDERS: Emergency Medicine; Emergency Provider Emergency Medicine
DX: N39.0 Urinary tract infection, site not specified (principal); R11.2 Nausea with vomiting, unspecified; M35.3 Polymyalgia rheumatica; M47.812 Spondylosis without myelopathy or radiculopathy, cervical region; M47.816 Spondylosis without myelopathy or radiculopathy, lumbar region
CPT/HCPCS: 36415; 80053; 81001; 83690; 85025; 87077; 87086; 87186; 96361; 96365; 99284; J0696; J7120